=== PATIENT | female | born 1950 | race Caucasian/White ===

== ENCOUNTER 2024-04-03 12:43 | Outpatient (REF) | payer MEDICARE, MEDICAID, SELFPAY ==
--- NOTE | ~2024-04-03 | XR_ITS ---
CLINICAL HISTORY: M41.56 - Other secondary scoliosis, lumbar region 4 views lumbar spine Comparison: None Findings: Moderate leftward curvature of the lower lumbar spine and mild rightward curvature of the thoracolumbar junction loss of normal lumbar lordosis. Mild upper lumbar and lower thoracic kyphosis. Arterial vascular calcifications are present. No acute fractures or dislocation. Multilevel disc space narrowing and endplate osteophyte formation, as well as facet hypertrophy. IMPRESSION: No acute findings. This document has been electronically signed by: Javed Rios MD on 04/04/2024 14:55:56
--- OUTSIDE RECORDS SUMMARY | 2024-04-03 15:22 | XMS_ITS | Encounter Summary ---
Author Organization [facility] Address [address] [place] [address] Care Team Providers Care Protein Specialist Name Role Phone Anupama Dumont MD Primary Care Provider [phone] Reason for Visit * Reason Onset Date Comments Medical Records 03/20/2024 Encounter Details Date Type Department Care Team (Late st Contact Info) Description 03/20/[address] [place] [phone] Anupama Dumont MD [address] [facility] [address] [place] [address] Medical Records Social History Tobacco Use Types [...] to her that we have a third constitution party copying service [employer] that will process your complete records upon receiving a signed ANDREE form. Patient understood and I mailed a ANDREE form to her. documented in this encounter Plan of Treatment Upcoming Encounters Date Type Department Care Team (Late st Contact Info) Description 04/10/2024 1:40 PM EST Office Visit Gastroenterology - [address] [facility] [address] [place] [phone] Wolf Callaway PA [address] [place] [address] documented as of this encounter Visit Diagnoses Not on filedocumented in this encounter Care Teams Protein Specialist Relationship Specialty Start Date End Date Anupama Dumont MD [address] [facility] [address] [place] [address] PCP - General Internal Medicine 03/19/24 documented as of this encounter
--- OUTSIDE RECORDS SUMMARY | 2024-04-03 15:22 | XMS_ITS | Clinical Summary ---
Author Organization [facility] 299 [facility] Address [address] [place] [address] Phone Care Team Providers Care Holistic Nutritionist Name Role Phone Anupama Dumont MD Primary Care Provider [phone] Allergies Active Allergy Reactions Criticality Noted Date [...] with Eliquis 2.5 mg twice daily. Her [id number] score is 5 representing a 7.2% risk [...] Type Department Care Team Description 03/20/2024 Telephone [facility] Cardiology [facility] [address] [place] [address] Anupama Dumont MD Medical Records 03/08/2024 Telephone [facility] [address] [facility] [address] [place] [address] Aleida Palacios NP Scheduling Follow Up from [...] Migraines DX:Migraines Major depressive disorder, r ecurrent ([facility]) DX:Major depressive disorder , recurrent ([facility]) COPD (chronic obstructive pu lmonary disease) ([facility]) DX:COPD (chronic obstructive pulmonary disease) ([facility]) Alcohol dependence in sustai ninfa full remission ([facility]) DX:Alcohol dependence in raphael tained full remission ([facility]) Anxiety DX:Anxiety Back pain DX:Back pain Carpal tunnel syndrome, bilateral DX:Carpal tunnel syndrome, bilateral Depression DX:Depression Emphysema lung ([facility]) DX:Emph ysema lung ([facility]) IFG (impaired fasting glucose) D X:IFG (impaired fasting glucose) Tobacco abuse DX:Tobacco abuse Acute respiratory failure wi th hypoxia ([facility]) DX:Acute respiratory failure with hypoxia ([facility]) Pulmonary embolism ([facility]) DX: Pulmonary embolism ([facility]); COMMENT: Unprovoked submassive Dyspnea DX:Dyspnea RLS (restless [...] Office Visit Gastroenterology - [address] [facility] [address] [place] [phone] Wolf Callaway PA [address] [place], [place] [phone] Health Maintenance Due Date Last Done Comments [...] age to complete this topic Care Teams Holistic Nutritionist Relationship Specialty Start Date End Date Anupama Dumont MD [address] [place] [address] PCP - General Internal Medicine 03/19/24
--- OUTSIDE RECORDS SUMMARY | 2024-04-03 15:22 | XMS_ITS | Encounter Summary ---
Author Organization [facility] Address [address] [place] [phone] Care Team Providers Care Food Service Tray Attendant Name Role Phone Anupama Dumont MD Primary Care Provider [phone] Reason for Visit * Reason Onset Date Comments Scheduling Follow Up 03/08/2024 Encounter Details Date Type Department Care Team (Late st Contact Info) Description 03/08/2024 Telephone [facility] Cardiology [facility] [address] [place] [phone] Aleida Palacios NP [address] [place] [address] [address] [place] [address] Scheduling Follow Up Social History Tobacco Use [...] [address] [place] [address] Wolf Callaway PA [address] [place] [address] documented as of this encounter Visit Diagnoses Not on filedocumented in this encounter Care Teams Food Service Tray Attendant Relationship Specialty Start Date End Date Anupama Dumont MD [address] [place] [address] PCP - General Internal Medicine 03/19/24 documented as of this encounter
== END 2024-04-03 12:44 | disposition home or self-care (01) ==
LOC: HO.HOSX 12:43
PROVIDERS: PCP Internal Medicine; Visit Provider Neurological Surgery
DX: M48.062 Spinal stenosis, lumbar region with neurogenic claudication (principal); M54.16 Radiculopathy, lumbar region; M41.56 Other secondary scoliosis, lumbar region
CPT/HCPCS: 72110; 99202

== ENCOUNTER 2024-04-03 12:43 | Outpatient (AMB) | payer MEDICARE, MEDICAID, SELFPAY ==
--- NOTE | 2024-04-03 12:48 | A.SPINEOV_ITS ---
Vital Signs 04/03/24 12:56 Height 5 ft 5 in Weight 178 lb BMI 29.6 Intake Visit Reasons: Back pain Intake Note: Ms. Valdez is here today c/o back pain. Farrowing Manager Required: No Allergies erythromycin base Adverse Reaction (Mild, Verified 04/03/24 12:58) Itching Physical Exam Vital Signs: BMI result Body Mass Index 29.6 Assessment & Plan Assessment & Plan (1) Scoliosis of lumbar region due to degenerative disease of spine in adult: Code(s): M41.56 - Other secondary scoliosis, lumbar region Category: Medical Plan: Dear colleague On 04/03/2024, I saw your patient Kayla Valdez for 2nd opinion with a chief complaint of left-sided back and groin pain and axial low back pain. HPI: This 73-year-old female has a long history of low back pain that increases when she walks or stands. She saw Dr. Morataya in the past told her that there was nothing surgically that could be done. Therefore, she has been living with the symptoms. The back pain does go into her legs after walking or standing. It is not pain per se in her legs but more a stiffness. Leaning forward or sitting down alleviates his symptoms. A 2nd complaint, which is the main reason why she is in my office today is a left-sided back pain that radiates to the left hip into her groin. In 2020, she had similar symptoms that would further radiate into her leg. The symptoms were debilitating and she underwent a surgical decompression by Dr. Rodarte at [facility]. The symptoms improved but never disappeared. A year postoperatively, the symptoms increased. She can not lay flat and therefore she sleeps in a sitting position on the couch. The pain is always present with flare-ups. She as [facility] if anything could be done. She was told that the pain does not radiate into her leg and therefore no surgery is indicated. The following conservative treatment options were tried without success antiinflammatories, tylenol, physical therapy, cortisone shots PMH: Hypertension, lung emboli Medications: Gabapentin, metoprolol, Eliquis, bupropion, fenofibrate, atorvastatin, losartan Allergies: NKDA Social history: Nonsmoker Physical Exam: Pleasant female. Height 5'5 weight 178 lb. Straight leg raise is negative bilaterally. SI joint provocative tests are negative. Motor and sensory exam are intact. No pathological reflexes Radiological Studies: MRI done at [facility] shows a lumbar degenerative scoliosis and a grade 1 L4-5 spondylolisthesis causing [id number] central spinal stenosis at L2-3, L3-4 and L4-5 and monitored foraminal stenosis of the right L3 L4 and L5 foramina . A dynamic x-ray today shows lumbar degenerative scoliosis L3-L5 with most likely an auto fusion at L2- 3. There is an L4-5 lateral listhesis and a grade 1 L4-5 spondylolisthesis also seen on the MRI. Impression/Plan: This patient has 2 separate complaints. The 1st is neurogenic claudication due to multilevel spinal stenosis associated with the lumbar degenerative scoliosis. The 2nd complaint is more a lumbar radiculopathy on the left side that is associated with severe lumbar degenerative disc disease L4-5, spinal stenosis and spondylolisthesis. I would like to obtain a CT of the lumbar spine to confirm that the L2-3 level is auto fused. I do think that I can help this patient's surgically, but it involves a correction of the lumbar degenerative scoliosis and spondylolisthesis through an oblique lumbar interbody fusion L3-4, L4-5 assuming that the L2-3 is auto fused. I discussed to the patient how this would help her neurogenic claudication symptoms and radicular symptoms on the hand of a model and review of her imaging. This minimally invasive approach can be done with an overnight stay. I will most likely at a left L2-3 laminotomy, which will be done during the insertion of L3-L5 pedicle screws. The patient will revisit me after the CT is done to finalize the plan and to decide if she wants to pursue this. Thank you for allowing me to participate in your patients care. total time spent was 50 minutes in counseling ,coordination of plan, personal r eview of imaging, surgical decision making and subsequent plan Dion Raymond MD, PhD Spine Fellowship Trained Neurosurgeon Director, [facility] (2) Lumbar stenosis with neurogenic claudication: Code(s): M48.062 - Spinal stenosis, lumbar region with neurogenic claudication Category: Medical (3) Lumbar radiculopathy, chronic: Code(s): M54.16 - Radiculopathy, lumbar region Category: Medical Plan: d Plan sd Orders: Orders XR lumbar spine 4V min Today M41.56 - Other secondary scoliosis, lumbar region CT lumbar spine wo IV con Today M41.56 - Other secondary scoliosis, lumbar region, M48.062 - Spinal stenosis, lumbar region with neurogenic claudication Coding Level of Care Code New Pt Level 4 (53129) Diagnoses Scoliosis of lumbar region due to degenerative disease of spine in adult M41.56 Lumbar stenosis with neurogenic claudication M48.062 Lumbar radiculopathy, chronic M54.16
[2024-04-03 12:56] VITALS: BMI 29.6
--- OUTSIDE RECORDS SUMMARY | 2024-04-03 14:49 | XMS_ITS | Encounter Summary ---
Author Organization [facility] Address [address] [place] [address] Care Team Providers Care Senior Quality Assurance Specialist Name Role Phone Anupama Dumont MD Primary Care Provider [phone] Reason for Visit * Reason Onset Date Comments Medical Records 03/20/2024 Encounter Details Date Type Department Care Team (Late st Contact Info) Description 03/20/[address] [place] [phone] Anupama Dumont MD [address] [facility] [address] [place] [address] Medical Records Social History Tobacco Use Types Packs/Day Years Used Date Smoking Tobacco: Every Day Cigarettes Smokeless Tobacco: Never Alcohol Use Standard Drinks/Week Comments Not Currently 0 (1 standard drink = 0.6 oz pur e alcohol) Sex and Gender Information Value Date Recorded Sex Assigned at Not on file Gender Identity Not on file Sexual Orientation Not on file Job Start Date Occupation Industry Not on file Not on file Not on file documented as of this encounter Progress Notes * Gena Richard - 03/20/2024 11:28 AM EST Patient called to inform us that she is leaving the practice and would like her complete records. Iexplained to her that we have a third green party copying service [employer] that will process your complete records upon receiving a signed ANDREE form. Patient understood and I mailed a ANDREE form to her. documented in this encounter Plan of Treatment Upcoming Encounters Date Type Department Care Team (Late st Contact Info) Description 04/10/2024 1:40 PM EST Office Visit Gastroenterology - [address] [facility] [address] [place] [phone] Wolf Callaway PA [address] [place] [address] documented as of this encounter Visit Diagnoses Not on filedocumented in this encounter Care Teams Senior Quality Assurance Specialist Relationship Specialty Start Date End Date Anupama Dumont MD [address] [facility] [address] [place] [address] PCP - General Internal Medicine 03/19/24 documented as of this encounter
--- OUTSIDE RECORDS SUMMARY | 2024-04-03 14:49 | XMS_ITS | Clinical Summary ---
Author Organization [facility] 299 [facility] Address [address] [place] [address] Phone Care Team Providers Care Aeronautical Design Engineer Name Role Phone Anupama Dumont MD Primary Care Provider [phone] Allergies Active Allergy Reactions Criticality Noted Date Comments Erythromycin 06/23/2020 Medications Medication Sig Dispensed Refills Start Date End Date Status Eliquis 2.5 mg tablet Take 2 tablets (5 mg total) by mouth 2 (two) times a day. 180 tablet 2 01/14/2024 Active ALPRAZolam (XANAX) 0.5 mg tablet Take 0.5 mg by mouth at bedtime. Active aspirin 81 mg chewable tablet Take 1 Tablet by mouth daily. 04/17/2023 Active atorvastatin (LIPITOR) 40 mg tablet TAKE 1 TABLET BY MOUTH DAILY 08/01/2023 Active carisoprodoL (SOMA) 250 mg tablet Take 1 Tablet by mouth 3 times daily as needed. Active gabapentin (NEURONTIN) 600 mg tablet Take 1 tablet by mouth 2 Times Daily. 10/01/2012 Active losartan (COZAAR) 50 mg tablet Take 1 Tablet by mouth daily. Active metoprolol tartrate (LOPRESSOR) 50 mg tablet Take 50 mg by mouth 2 times daily. Active omega-3 acid ethyl esters (LOVAZA) 1 gram capsule daily. 10/01/2012 Active sertraline (ZOLOFT) 100 mg tablet Take 1 tablet by mouth daily. 10/01/2012 Active BUPROPION HCL ORAL Take 300 mg by mouth daily. 10/01/2012 Active multivitamin (MULTIPLE VITAMINS ORAL) Take?by mouth daily. Active fenofibrate (TRICOR) 48 mg tablet TAKE 1 TABLET BY MOUTH EVERY DAY 10/19/2023 Active Active Problems Problem Noted Date Diagnosed Date Bruit 10/10/2022 Overview (03/20/2024): Last Assessment & Plan: Patient has history of carotid bruit. We discussed the importance of managing her risk factors and continuing on atorvastatin and aspirin. She has not been taking aspirin but is agreeable to restarting this today. We also discussed that goal LDL cholesterol should be less than 70. Her last LDL cholesterol was 83. At that time her atorvastatin dose was increased. We will update lipid panel to see where she is at at this point. Chest pain 10/10/2022 Overview (03/20/2024): Last Assessment & Plan: We did discuss her chest discomfort. She has been having this off and on with exertion for some time now. We did discuss potential causes. We did a stress test on her in the past. She was unable to complete this due to leg pain and discomfort. This is a submaximal test. We had requested to reorder this as a nuclear stress test with regadenoson. She was worried about getting the regular and a son and having a reaction. She states that she had spoken with friends who had had this and felt poorly. Because of this she did not follow through with her test. We did discuss this again. We did discuss the reactions that she could have from the regadenoson and that this is reversible. She is willing to participate although she does not seem very convinced. We will try to get her approved for a cardiac PET stress test as this will be a better test for her. Her BMI is 31. She does have risks for soft tissue attenuation based on her body habitus. PAF (paroxysmal atrial fibrillation) 10/28/2021 Overview (03/20/2024): Last Assessment & Plan: Patient has history of paroxysmal atrial fibrillation. She also has history of pulmonary embolism in the past. She has been on anticoagulation with Eliquis 2.5 mg twice daily. Her [id number] score is 5 representing a 7.2% risk for thromboembolism. Given her age, weight and renal function her Eliquis dose is not adequate. I will increase her Eliquis to 5 mg twice daily. I explained the importance of appropriate dosing with the patient and she is agreeable to make this change. We will update an echocardiogram. Pulmonary embolism 10/28/2021 Overview (03/20/2024): Last Assessment & Plan: We did discuss her pulmonary embolism. She did have some RV strain and pulmonary hypertension secondary to this. Of asked her to repeat an echocardiogram so we can make sure that her RV size and function have gone back to normal. We did discuss that she could have continued pulmonary hypertension from her smoking as well as her pulmonary embolism. Dyspnea 08/25/2020 Overview (03/20/2024): Last Assessment & Plan: This is likely multifactorial with her history of smoking, pulmonary embolism and potential coronary disease. Again we will be updating her cardiac stress test. She had an echo done recently which showed normal left ventricular function with a reduction in her gradient. Pulmonary pressures have been stable Hyperlipidemia 08/20/2020 Overview (03/20/2024): Last Assessment & Plan: Goal LDL cholesterol is less than 70. She has been on atorvastatin 40 mg since January at which time her LDL cholesterol was above goal at 83. We will update a lipid panel to reassess. She will also continue on fenofibrate as prescribed. Hypertension 08/20/2020 Overview (03/20/2024): Last Assessment & Plan: Blood pressure is well-controlled with a reading today of 120/64. She continues on losartan and metoprolol with good effect. No changes to her medications today. PSVT (paroxysmal supraventricular tachycardia) 0 08/20/2020 Overview (03/20/2024): Last Assessment & Plan: Patient has history of paroxysmal supraventricular tachycardia. She remains on metoprolol for rate control and denies any palpitations. Encounters Date Type Department Care Team Description 03/20/2024 Telephone [facility] Cardiology [facility] [address] [place] [address] Anupama Dumont MD Medical Records 03/08/2024 [address] [facility] [address] [facility] [address] [place] [address] Aleida Palacios NP Scheduling Follow Up from Last 3 Months Surgical History Surgery Date Site/Laterality Comments OTHER SURGICAL HISTORY 12/06/2005 PROCEDURE: HISTORICAL PANNICULECTOMY OTHER SURGICAL HISTORY 09/2014 PROCEDURE: HISTORY OTHER; COMMENT: Blepharoplasty - ptosis repair [facility] OTHER SURGICAL HISTORY 05/2020 PROCEDURE: HISTORY OTHER; COMMENT: Microdiscectomy of lumbar spine at L3-L4 level - Dr. Rodarte OTHER SURGICAL HISTORY 06/2018 PROCEDURE: DIAGNOSTIC MAMMOGRAM BACK SURGERY PROCEDURE: HISTORICAL BACK SURGERY Medical History Medical History Date Comments Lumbar pain DX:Lumbar pain Lumbar stenosis with neuroge julien claudication DX:Lumbar stenosis with neur ogenic claudication Family history of early CAD DX:F amily history of early CAD Panic disorder with agoraphobia DX:Panic disorder with agoraphobia Migraines DX:Migraines Major depressive disorder, r ecurrent ([facility]) DX:Major depressive disorder , recurrent ([facility]) COPD (chronic obstructive pu lmonary disease) ([facility]) DX:COPD (chronic obstructive pulmonary disease) ([facility]) Alcohol dependence in sustai nifna full remission ([facility]) DX:Alcohol dependence in raphael tained full remission ([facility]) Anxiety DX:Anxiety Back pain DX:Back pain Carpal tunnel syndrome, bilateral DX:Carpal tunnel syndrome, bilateral Depression DX:Depression Emphysema lung ([facility]) DX:Emph ysema lung ([facility]) IFG (impaired fasting glucose) D X:IFG (impaired fasting glucose) Tobacco abuse DX:Tobacco abuse Acute respiratory failure wi th hypoxia ([facility]) DX:Acute respiratory failure with hypoxia ([facility]) Pulmonary embolism ([facility]) DX: Pulmonary embolism ([facility]); COMMENT: Unprovoked submassive Dyspnea DX:Dyspnea RLS (restless legs syndrome) DX: RLS (restless legs syndrome) Family History Medical History Relation Name Comments Alcohol abuse Brother Heart attack Father COPD Other Coronary artery disease Other Alcohol abuse Sister Depression Sister Other: Anxiety disorder Sister Relation Name Status Comments Brother Father Other Sister Social History Tobacco Use Types Packs/Day Years [...] file Not on file Not on file Obstetrics History Last Filed Vital Signs Vital Sign Reading Time Taken Comments Blood Pressure 130/60 10/11/2023 2:19 PM EDT Sit ting L Arm Pulse 64 04/17/2023 1:21 PM EST Temperature - - Respiratory Rate - - Oxygen Saturation - - Inhaled Oxygen Concentration - - Weight 77.6 kg (171 lb) 10/11/2023 2:19 PM EDT Height 165.1 cm (5' 5 ) 10/11/2023 2:19 PM EDT Body Mass Index 28.46 10/11/2023 2:19 PM EDT Plan of Treatment Upcoming Encounters Date Type Department Care Team (Late st Contact Info) Description 04/10/2024 1:40 PM EST Office Visit Gastroenterology - [address] [facility] [address] [place] [phone] Wolf Callaway PA [address] [place], [place] [phone] Health Maintenance Due Date Last Done Comments Breast Cancer Screening 1950 Pneumococcal Vaccine: 65+ Ye ars (1 of 2 - PCV) 1958 DTaP,Tdap,and Td Vaccines (1 - Tdap) 11/25/1971 Zoster Vaccines (1 of 2) 2002 RSV Immunization Patients 60 + Years Old (1 - Risk 60-74 years 1-dose series) 2012 Cholesterol Screening (Lipid Panel) 02/12/2022 Colorectal Cancer Screening: Colonoscopy 02/12/2022 Depression Screening 02/12/2022 Falls Risk Assessment 02/12/2022 Hepatitis C Screening 02/12/2022 Hypertension/CHF/CAD Annual BMP Blood Test 02/12/2022 Medicare Annual Wellness Visit 02/12/2022 Osteoporosis Screening (Bone Density Screening) 02/12/2022 Social Influencers of Health Screening 02/12/2022 COVID-19 Vaccine (1 - 2023-2 5 season) 2023 Influenza Vaccine (#1) 2023 HIB Vaccines Aged Out No longer eligi ble based on patient's age to complete this topic HPV Vaccines Aged Out No longer eligi ble based on patient's age to complete this topic Hepatitis A Vaccines Aged Out No long er eligible based on patient's age to complete this topic Hepatitis B Vaccines Aged Out No long er eligible based on patient's age to complete this topic IPV Vaccines Aged Out No longer eligi ble based on patient's age to complete this topic MMR Vaccines Aged Out No longer eligi ble based on patient's age to complete this topic Meningococcal ACWY Vaccine Aged Out N o longer eligible based on patient's age to complete this topic RSV Immunization Patients Un ambar 20 months Aged Out No longer eligible b ased on patient's age to complete this topic Varicella Vaccines Aged Out No longer eligible based on patient's age to complete this topic Care Teams Aeronautical Design Engineer Relationship Specialty Start Date End Date Anupama Dumont MD [address] [place] [address] PCP - General Internal Medicine 03/19/24
--- OUTSIDE RECORDS SUMMARY | 2024-04-03 14:49 | XMS_ITS | Encounter Summary ---
Author Organization [facility] Address [address] [place] [phone] Care Team Providers Care Bobbin Loose End Finder Name Role Phone Anupama Dumont MD Primary Care Provider [phone] Reason for Visit * Reason Onset Date Comments Scheduling Follow Up 03/08/2024 Encounter Details Date Type Department Care Team (Late st Contact Info) Description 03/08/2024 Telephone [facility] Cardiology [facility] [address] [place] [phone] Aleida Palacios NP [address] [place] [address] [address] [place] [address] Scheduling Follow Up Social History Tobacco Use Types Packs/Day Years [...] as of this encounter Progress Notes * Barbi Rice - 03/08/2024 10:13 AM EST I called the patient to schedule a follow up appointment with Aleida. The patient did not wish to schedule a follow up. States she called back in October and was not able to get through to anyone so she is all set. documented in this encounter Plan of Treatment Upcoming Encounters Date Type Department Care Team (Late st Contact Info) Description 04/10/2024 1:40 PM EST Office Visit Gastroenterology - [address] [place] [address] Wolf aCllaway PA [address] [place] [address] documented as of this encounter Visit Diagnoses Not on filedocumented in this encounter Care Teams Bobbin Loose End Finder Relationship Specialty Start Date End Date Anupama Dumont MD [address] [place] [address] PCP - General Internal Medicine 03/19/24 documented as of this encounter
== END 2024-04-03 13:50 | disposition home or self-care (01) ==
PROVIDERS: PCP Internal Medicine; Visit Provider Neurological Surgery
DX: M41.56 Other secondary scoliosis, lumbar region (principal); M48.062 Spinal stenosis, lumbar region with neurogenic claudication; M54.16 Radiculopathy, lumbar region
CPT/HCPCS: 99204

== ENCOUNTER → 2024-04-03 13:18 | Outpatient (BNV) | payer MEDICARE, MEDICAID, SELFPAY | PROVIDERS: PCP Internal Medicine; Visit Provider Radiology Diagnostic Radiology | DX: M41.9 Scoliosis, unspecified (principal) | CPT/HCPCS: 72110 ==

== ENCOUNTER 2024-05-15 12:42 | Outpatient (REF) | payer MEDICARE, MEDICAID, SELFPAY ==
--- NOTE | ~2024-05-15 | CT_ITS ---
CLINICAL HISTORY: M48.062 - Spinal stenosis, lumbar region with neurogenic claudication CT lumbar spine without contrast Comparison: DX - XR LUMBAR SPINE 4V MIN - 04/03/24 13:18 EST Findings: No acute fracture. Scoliosis and multilevel degenerative changes of the lumbar spine with osteophyte formation and narrowing of the intervertebral disc space including L1-L2, L2-L3, L3-L4 and L4-L5. Degenerative facet arthropathy of the lower lumbar spine. There is a left kidney stone. T12-L1: Unremarkable. L1-L2: Disc bulging with mild spinal stenosis. Mild right neural foramina stenosis and moderate left neural foramina stenosis. L2-L3: Disc bulging with mild spinal stenosis. Moderate bilateral neural foramina stenosis. L3-L4: Disc bulging with moderate spinal stenosis. Moderate left neural foramina stenosis and [id number] right neural foramina stenosis. L4-L5: Disc bulging with moderate spinal stenosis. Mild bilateral neural foramina stenosis. L5-S1: No spinal stenosis. Mild bilateral neural foramina stenosis. IMPRESSION: 1. No acute findings. Multilevel degenerative changes of the lumbar spine as above. This document has been electronically signed by: Gretchen Paige MD on 05/16/2024 15:34:32
--- OUTSIDE RECORDS SUMMARY | 2024-05-15 14:45 | XMS_ITS | Encounter Summary ---
Author Organization [facility] Address [address] [place] [address] Care Team Providers Care Microbiology Professor Name Role Phone Anupama Dumont MD Primary Care Provider Reason for Visit * Reason Onset Date Comments Medical Records 04/17/2024 Encounter Details Date Type Department Care Team (Late st Contact Info) Description 04/17/2024 Telephone [facility] Cardiology [facility] [address] [place] [phone] Anupama Dumont MD [address] [facility] [address] [place] [address] Medical Records Social History Tobacco Use Types Packs/Day Years Used Date Smoking Tobacco: Every Day Cigarettes Smokeless Tobacco: Never Alcohol Use Standard Drinks/Week Comments Not Currently 0 (1 standard drink = 0.6 oz pur e alcohol) Comments Unknown Sex and Gender Information Value Date Recorded Sex Assigned at Female 04/15/2024 11:41 AM EST Legal Sex Female 7:31 AM EST Gender Identity Female 04/15/2024 11:41 AM EST Sexual Orientation Straight 04/15/2024 11 :41 AM EST documented as of this encounter Progress Notes * Gena Richard - 05/06/2024 4:46 PM EST Faxed 04/17/2023 Office Note and 10/11/2023 Echo report to [facility] at [phone] on 04/17/2024 documented in this encounter Plan of Treatment Upcoming Encounters Date Type Department Care Team (Late st Contact Info) Description 06/20/2024 9:00 AM EDT Appointment [facility] Xray [address] [place] [phone] 07/10/2024 1:20 PM EDT Office Visit Gastroenterology - [address] [facility] [address] [place] [address] Wolf Callaway PA [address] [facility] [address] [place] [address] 07/15/2024 1:30 PM EDT Office Visit [facility] - [address] 300 [facility] [address] [place] [address] Janes Pinzon MD 300 [facility] [address] [place] [address] documented as of this encounter Visit Diagnoses Not on filedocumented in this encounter Care Teams Microbiology Professor Relationship Specialty Start Date End Date Anupama Dumont MD [address] [facility] [address] [place] [address] PCP - General Internal Medicine 03/19/24 documented as of this encounter
--- OUTSIDE RECORDS SUMMARY | 2024-05-15 14:45 | XMS_ITS | Clinical Summary ---
Author Organization [facility] 299 [facility] Address [address] [place] [address] Phone Care Team Providers Care Boxing And Pressing Supervisor Name Role Phone Anupama Dumont MD Primary Care Provider [phone] Allergies Active Allergy Reactions Criticality Noted Date Comments Erythromycin 06/23/2020 Medications Eliquis 2.5 mg tablet Take 2 tablets (5 mg total) by mouth 2 (two) times a day. 180 tablet 2 4 Active ALPRAZolam (XANAX) 0.5 mg tablet Take 0.5 mg by mouth at bedtime. Active aspirin 81 mg chewable tablet Take 1 Tablet by mouth daily. 4 Active carisoprodoL (SOMA) 250 mg tablet Take 1 Tablet by mouth 3 times daily as needed. Active gabapentin (NEURONTIN) 600 mg tablet Take 1 tablet by mouth 2 Times Daily. 3 Active losartan (COZAAR) 50 mg tablet Take 1 Tablet by mouth daily. Active metoprolol tartrate (LOPRESSOR) 50 mg tablet Take 50 mg by mouth 2 times daily. Active omega-3 acid ethyl esters (LOVAZA) 1 gram capsule daily. 3 Active sertraline (ZOLOFT) 100 mg tablet Take 1 tablet by mouth daily. 3 Active BUPROPION HCL ORAL Take 300 mg by mouth daily. 3 Active multivitamin (MULTIPLE VITAMINS ORAL) Take?by mouth daily. Active fenofibrate (TRICOR) 48 mg tablet TAKE 1 TABLET BY MOUTH EVERY DAY 4 Active omeprazole OTC (PriLOSEC OTC) 20 mg EC tabletIndicati ons:Early satiety,Pharyn goesophageal dysphagia,Regu rgitation of food Take 1 tablet (20 mg total) by mouth 1 (one) time each day. Do not crush, chew, or split. 90 tablet 3 5 04/10/19 26 Active atorvastatin (LIPITOR) 40 mg tablet TAKE 1 TABLET BY MOUTH DAILY 90 tablet 5 Active atorvastatin (LIPITOR) 40 mg tablet TAKE 1 TABLET BY MOUTH DAILY 4 04/19/19 25 Discontinued Active Problems Problem Noted Date Diagnosed Date [...] with Eliquis 2.5 mg twice daily. Her [id number] score is 5 representing a 7.2% risk [...] Encounters Date Type Department Care Team Description 04/17/2024 Telephone [facility] [address] [place] [address] Anupama Dumont MD Medical Records 04/10/2024 2:17 PM EST - 04/10/2024 11:59 PM EST Hospital Encounter [facility] Xray [address] [place] [phone] Early satiety Discharge Disposition: Home or Self Care 04/10/2024 1:40 PM EST Office Visit Gastroenterology - [address] [facility] [address] [facility] [address] [place] [phone] Wolf Callaway PA Early satiety (Primary Dx); Pharyngoesophageal dysphagia; Regurgitation of food; Chronic diarrhea 03/20/2024 Telephone [facility] [address] [place] [address] Anupama Dumont MD Medical Records 03/08/2024 Telephone [facility] [address] [place] [phone] Aleida Palacios NP Scheduling Follow Up from [...] Migraines DX:Migraines Major depressive disorder, r ecurrent (CMS/HCC) DX:Major depressive disorder , recurrent (HCC) COPD (chronic obstructive pu lmonary disease) (CMS/HCC) DX:COPD (chronic obstructive pulmonary disease) (HCC) Alcohol dependence in sustai ninfa full remission (CMS/HCC) DX:Alcohol dependence in raphael tained full remission (HCC) Anxiety DX:Anxiety Back pain DX:Back pain Carpal tunnel syndrome, bilateral DX:Carpal tunnel syndrome, bilateral Depression DX:Depression Emphysema lung (CMS/HCC) DX:Emph ysema lung (HCC) IFG (impaired fasting glucose) D X:IFG (impaired fasting glucose) Tobacco abuse DX:Tobacco abuse Acute respiratory failure wi th hypoxia (CMS/HCC) DX:Acute respiratory failure with hypoxia (HCC) Pulmonary embolism (CMS/[facility]) DX: Pulmonary embolism (HCC); COMMENT: Unprovoked submassive Dyspnea DX:Dyspnea RLS (restless [...] Orientation Straight 04/15/2024 11 :41 AM EST Obstetrics History Last Filed Vital Signs Vital Sign Reading Time Taken Comments Blood Pressure 130/60 10/11/2023 2:19 PM EDT Sit ting L Arm Pulse 64 04/17/2023 1:21 PM EST Temperature - - Respiratory Rate - - Oxygen Saturation - - Inhaled Oxygen Concentration - - Weight 83 kg (183 lb) 04/10/2024 1:28 PM EST Height 160 cm (5' 3 ) 04/10/2024 1:28 PM EST Body Mass Index 32.42 04/10/2024 1:28 PM EST Plan of Treatment Upcoming Encounters Date Type Department Care Team (Late st Contact Info) Description 06/20/2024 9:00 AM EDT Appointment [facility] Xray [address] [place] [phone] 07/10/2024 1:20 PM EDT Office Visit Gastroenterology - [address] [facility] [address] [place] [address] Wolf Callaway PA 299 [facility] [address] [place] [address] 07/15/2024 1:30 PM EDT Office Visit [facility] [address] [facility] [address] [place] [phone] Janes Pinzon MD 300 [facility] [address] [place] [address] Health Maintenance Due Date Last Done Comments Breast Cancer Screening 1950 DTaP,Tdap,and Td Vaccines (1 - Tdap) 11/25/1971 Colorectal Cancer Screening: Colonoscopy 02/12/2022 Depression Screening 02/12/2022 Falls Risk Assessment 02/12/2022 Hepatitis C Screening 02/12/2022 Medicare Annual Wellness Visit 02/12/2022 Osteoporosis Screening (Bone Density Screening) 02/12/2022 Social Influencers of Health Screening 02/12/2022 Influenza Vaccine (#1) 2023 , 12/22/2021, 12/06/2020, Additional history exists Hypertension/CHF/CAD Annual BMP Blood Test 04/10/2025 04/10/2024 Cholesterol Screening (Lipid Panel) 04/26/2029 04/26/2024 RSV Immunization Patients 60+ Years Old Completed 12/07/2022 Pneumococcal Vaccine: 50+ Years Completed 11/10/2023, 12/05/2017, 08/18/2010 Zoster Vaccines Completed 11/10/2023, 06/01/2023 COVID-19 Vaccine Completed 12/20/2023, 06/2022, 11/22/2021, Additional history exists HIB Vaccines Aged Out No longer eligi [...] patient's age to complete this topic Meningococcal B Vacine Aged Out No lo nger eligible based on patient's age to complete this topic RSV Immunization Patients Under 20 months Aged Out No longer eligible based on patient's age to complete this topic Varicella Vaccines Aged Out No longer eligible based on patient's age to complete this topic Procedures Procedure Name Priority Date/Time Associated Diagnosis Comments LIPID PANEL Routine 04/26/2024 9:50 AM EST Hyperlipidemia, unspecified hyperlipidemia type XR ABDOMEN 1 VIEW Routine 04/10/2024 2:4 6 PM EST Early satiety CBC WITH AUTO DIFFERENTIAL Routine 04/10/2024 2:30 PM EST Early satiety Pharyngoesophageal dysphagia Regurgitation of food Chronic diarrhea IMMUNOGLOBULIN IGA Routine 04/10/2024 2: 30 PM EST Chronic diarrhea ENDOMYSIAL ANTIBODY, IGA Routine 04/10/2024 2:30 PM EST Early satiety Pharyngoesophageal dysphagia Regurgitation of food Chronic diarrhea TISSUE TRANSGLUTAMINASE, IGA Routine 04/10/2024 2:30 PM EST Early satiety Pharyngoesophageal dysphagia Regurgitation of food Chronic diarrhea VITAMIN B12 AND FOLATE Routine 2:30 PM EST Early satiety Pharyngoesophageal dysphagia Regurgitation of food Chronic diarrhea CBC AND DIFFERENTIAL Routine 04/10/2024 2:30 PM EST Early satiety Pharyngoesophageal dysphagia Regurgitation of food Chronic diarrhea COMPREHENSIVE METABOLIC PANEL Routine 04/10/2024 2:30 PM EST Early satiety Pharyngoesophageal dysphagia Regurgitation of food Chronic diarrhea from Last 3 Months Results * Lipid panel (04/26/2024 9:50 AM EST) Cholesterol Total 122 100 - 199 mg/dL [facility] Triglycerides 109 0 - 149 mg/dL [facility] HDL Cholesterol 44 >39 mg/dL [facility] VLDL Cholesterol Calculated 20 5 - 40 mg/dL [facility] LDL Chol Calc ([facility]) 58 0 - 99 mg/dL [facility] Blood Venous blood specimen / Unknown 04/26/2024 9:50 AM EST 04/26/2024 Narrative [facility] - 04/27/2024 3:06 AM EST Performed at: ??01 - [facility] [address] ??[id number] Customs Agent: Maureen Saleh MD, Phone: ??[phone] us Aleida Palacios MULTIPLE NEEDLE STITCHER LAB BLOOD ORDERABLES Final R esult [facility] * XR Abdomen 1 View (04/10/2024 2:46 PM EST) Anatomical Region Laterality Modality Body Radiographic Elizabeth ging 04/11/2024 7:55 AM EST Impressions 04/11/2024 7:57 AM EST Nonobstructive bowel gas pattern. ??There is no radiographic evidence of constipation. Code 23243 CT Teleradiology -------- FINAL REPORT -------- Dictated By: Cuco Jo Dictated Date: 04/11/2024 07:55 ET Assigned Physician: Cuco Jo Reviewed and Electronically Signed By: Cuco Jo Signed Date: 04/11/2024 07:57 ET Workstation ID: [id number] Transcribed By: Self Edit Transcribed Date: 04/11/2024 07:55 ET Narrative 04/11/2024 7:57 AM EST HISTORY: The patient is a 73-year-old female with abdominal distention and early satiety. FINDINGS: Supine radiographs of the abdomen, without previous for comparison, demonstrate degenerative changes of the lumbar spine and included portion of the thoracic spine. ??There is dextroscoliosis of the thoracolumbar spine and levoscoliosis of the lower lumbar spine. ??Mild osteoarthritis of both hips is noted. ??The bowel gas pattern is nonobstructive. ??The volume of fecal material is not unusually increased. ??No mass or radiopaque calculus is seen. Procedure Note Cuco Jo MD - 04/11/2024 HISTORY: The patient is a 73-year-old female with abdominal distention andearly satiety. FINDINGS: Supine radiographs of the abdomen, without previous forcomparison, demonstrate degenerative changes of the lumbar spine andincluded portion of the thoracic spine. There is dextroscoliosis of thethoracolumbar spine and levoscoliosis of the lower lumbar spine. Mildosteoarthritis of both hips is noted. The bowel gas pattern isnonobstructive. The volume of fecal material is not unusually increased.No mass or radiopaque calculus is seen. IMPRESSION: Nonobstructive bowel gas pattern. There is no radiographic evidence ofconstipation. Code 56197 CT Teleradiology -------- FINAL REPORT -------- Dictated By: Cuco Jo Dictated Date: 04/11/2024 07:55 ET Assigned Physician: Cuco Jo Reviewed and Electronically Signed By: Cuco Jo Signed Date: 04/11/2024 07:57 ET Workstation ID: [id number] Transcribed By: Self Edit Transcribed Date: 04/11/2024 07:55 ET Wolf MOLINA IMG XR PROCEDURES Final Resu lt * (ABNORMAL) Vitamin B12 and folate (04/10/2024 2:30 PM EST) [facility] Signature Vitamin B-12 550 250 - 900 pcg/mL LAB CHEMISTRY METHOD 04/10/2024 4:21 PM EST [facility] Folate >20.0(H) 2.8 - 17.0 ng/ml LAB CHEMISTRY METHOD 04/10/2024 4:21 PM EST [facility] Blood Venous blood specimen / Unknown Venipuncture / Unknown 04/10/2024 2:30 PM EST 04/10/2024 3:[address] [facility] BLOOD ORDERABLES Final R esult [facility] [address] [place] [address], [place] [phone] * Endomysial antibody, IgA (04/10/2024 2:30 PM EST) Endomysial IgA Negative Negative 04/16/2024 11:54 AM [facility] Blood Venous blood specimen / Unknown Venipuncture / Unknown 04/10/2024 2:30 PM EST 04/10/2024 3:17 PM EST Wolf MOLINA LAB BLOOD ORDERABLES Final R esult [facility] [address] [place] [address], [place] [phone] * (ABNORMAL) CBC auto differential (04/10/2024 2:30 PM EST) WBC 6.9 4.8 - 10.8 K/mcL LAB HEMETOLOGY METHOD 04/10/2024 3:22 PM [facility] RBC 4.30 3.80 - 4.80 M/mcL LAB HEMETOLOGY METHOD 04/10/2024 3:22 PM [facility] Hemoglobin 12.7 11.5 - 16.0 g/dL LAB HEMETOLOGY METHOD 04/10/2024 3:22 PM [facility] Hematocrit 39.0 35.0 - 47.0 % LAB HEMETOLOGY METHOD 04/10/2024 3:22 PM [facility] MCV 90.5 79.0 - 98.0 FL LAB HEMETOLOGY METHOD 04/10/2024 3:22 PM [facility] MCH 29.5 27.0 - 32.0 pcg LAB HEMETOLOGY METHOD 04/10/2024 3:22 PM [facility] MCHC 32.6 32.0 - 37.0 g/dL LAB HEMETOLOGY METHOD 04/10/2024 3:22 PM [facility] RDW 14.3 11.0 - 15.0 % LAB HEMETOLOGY METHOD 04/10/2024 3:22 PM [facility] Platelets 254 130 - 400 K/mcL LAB HEMETOLOGY METHOD 04/10/2024 3:22 PM [facility] MPV 9.1 7.0 - 11.0 FL LAB HEMETOLOGY METHOD 04/10/2024 3:22 PM [facility] NRBC 0.0 <1.0 % LAB HEMETOLOGY METHOD 04/10/2024 3:22 PM [facility] NRBC Absolute 0.00 <0.10 K/mcL LAB HEMETOLOGY METHOD 04/10/2024 3:22 PM [facility] Neutrophils Relative 63.0 % LAB HEMETOLOGY METHOD 04/10/2024 3:22 PM [facility] Lymphocytes Relative 24.3 % LAB HEMETOLOGY METHOD 04/10/2024 3:22 PM [facility] Monocytes Relative 7.9 % LAB HEMETOLOGY METHOD 04/10/2024 3:22 PM [facility] Eosinophils Relative 3.6 % LAB HEMETOLOGY METHOD 04/10/2024 3:22 PM [facility] Basophils Relative 0.6 % LAB HEMETOLOGY METHOD 04/10/2024 3:22 PM [facility] Immature Granulocytes Relative 0.6 % LAB HEMETOLOGY METHOD 04/10/2024 3:22 PM EST [facility] Neutrophils Absolute 4.33 1.50 - 7.00 K/mcL LAB HEMETOLOGY METHOD 04/10/2024 3:22 PM EST [facility] Lymphocytes Absolute 1.67 1.00 - 5.00 K/mcL LAB HEMETOLOGY METHOD 04/10/2024 3:22 PM EST [facility] Monocytes Absolute 0.54 0.20 - 1.00 K/mcL LAB HEMETOLOGY METHOD 04/10/2024 3:22 PM EST [facility] Eosinophils Absolute 0.25 0.00 - 0.50 K/mcL LAB HEMETOLOGY METHOD 04/10/2024 3:22 PM [facility] Basophils Absolute 0.04 0.00 - 0.20 K/mcL LAB HEMETOLOGY METHOD 04/10/2024 3:22 PM EST [facility] Immature Granulocytes Absolute 0.04(H) 0.00 - 0.03 K/mcL LAB HEMETOLOGY METHOD 04/10/2024 3:22 PM [facility] Blood Venous blood specimen / Unknown Venipuncture / Unknown 04/10/2024 2:30 PM EST 04/10/2024 3:17 PM EST Wolf MOLINA LAB BLOOD ORDERABLES Final R esult [facility] [address] [place] [address], * Tissue transglutaminase, IgA (04/10/2024 2:30 PM EST) Tissue Transglutaminase Ab, IgA Quant 1 <4 unit/mL LAB CHEMISTRY METHOD 04/11/2024 2:45 PM EST [facility] Tissue Transglutaminase Ab, IgA Negative Negative LAB CHEMISTRY METHOD 04/11/2024 2:45 PM EST [facility] Blood Venous blood specimen / Unknown Venipuncture / Unknown 04/10/2024 2:30 PM EST 04/10/2024 3:[address] [facility] BLOOD ORDERABLES Final R esult Performing Organization Address City/[facility]/ZIP Co de Phone Number [facility] [address] [place] [address], [place] [phone] * Immunoglobulin IgA (04/10/2024 2:30 PM EST) Pathologist [facility] IgA 113 61 - 348 mg/dL LAB CHEMISTRY METHOD 04/10/2024 4:21 PM [facility] Blood Venous blood specimen / Unknown Venipuncture / Unknown 04/10/2024 2:30 PM EST 04/10/2024 3:17 PM EST Wolf MOLINA LAB BLOOD ORDERABLES Final R esult Performing Organization Address City/[facility]/ZIP Co de Phone Number [facility] [address] [place] [address], [place] [phone] * (ABNORMAL) Comprehensive metabolic panel (04/10/2024 2:30 PM EST) Pathologist [facility] Sodium 141 133 - 145 mmol/L LAB CHEMISTRY METHOD 04/10/2024 4:21 PM [facility] Potassium 4.1 3.5 - 5.5 mmol/L LAB CHEMISTRY METHOD 04/10/2024 4:21 PM [facility] Chloride 107 96 - 110 mmol/L LAB CHEMISTRY METHOD 04/10/2024 4:21 PM [facility] CO2 30 21 - 32 mmol/L LAB CHEMISTRY METHOD 04/10/2024 4:21 PM [facility] Anion Gap 4 3 - 11 LAB CHEMISTRY METHOD 04/10/2024 4:21 PM [facility] Glucose 144(H) 70 - 100 mg/dL LAB CHEMISTRY METHOD 04/10/2024 4:21 PM [facility] BUN 13 5 - 25 mg/dL LAB CHEMISTRY METHOD 04/10/2024 4:21 PM [facility] Creatinine 1.02 0.50 - 1.10 mg/dL LAB CHEMISTRY METHOD 04/10/2024 4:21 PM [facility] eGFR 59(L) >=60 mL/min/1. 73m2 LAB CHEMISTRY METHOD 04/10/2024 4:21 PM [facility] Comment:Calculation based on the??Chronic Kidney Disease Epidemiology Collaboration (CKD-EPI) equation refit??without adjustment for race. BUN/Creatinine Ratio 12.7 LAB CHEMISTRY METHOD 04/10/2024 4:21 PM [facility] Calcium 9.4 8.5 - 10.5 mg/dL LAB CHEMISTRY METHOD 04/10/2024 4:21 PM [facility] AST (SGOT) 15 10 - 42 unit/L LAB CHEMISTRY METHOD 04/10/2024 4:21 PM [facility] ALT (SGPT) 30 10 - 60 unit/L LAB CHEMISTRY METHOD 04/10/2024 4:21 PM [facility] Alkaline Phosphatase 122(H) 42 - 121 unit/L LAB CHEMISTRY METHOD 04/10/2024 4:21 PM [facility] Total Protein 6.2 6.0 - 8.0 g/dL LAB CHEMISTRY METHOD 04/10/2024 4:21 PM [facility] Albumin 3.5 3.2 - 5.0 g/dL LAB CHEMISTRY METHOD 04/10/2024 4:21 PM [facility] Total Bilirubin 0.3 0.0 - 1.4 mg/dL LAB CHEMISTRY METHOD 04/10/2024 4:21 PM [facility] Blood Venous blood specimen / Unknown Venipuncture / Unknown 04/10/2024 2:30 PM EST 04/10/2024 3:17 PM EST us Wolf MOLINA LAB BLOOD ORDERABLES Final R esult [facility] [address] [place] [address], [place] [phone] from Last 3 Months Insurance MEDICARE MEDICAID - [place] Care Teams Boxing And Pressing Supervisor Relationship Specialty Start Date End Date Anupama Dumont MD [address] [place] [address] PCP - General Internal Medicine 03/19/24
== END 2024-05-15 12:43 | disposition home or self-care (01) ==
LOC: HO.CT 12:42
PROVIDERS: PCP Internal Medicine; Visit Provider Neurological Surgery
DX: M48.062 Spinal stenosis, lumbar region with neurogenic claudication (principal); M41.56 Other secondary scoliosis, lumbar region
CPT/HCPCS: 72131

== ENCOUNTER → 2024-05-15 12:49 | Outpatient (BNV) | payer MEDICARE, MEDICAID, SELFPAY | PROVIDERS: PCP Internal Medicine; Visit Provider Nuclear Medicine | DX: M48.062 Spinal stenosis, lumbar region with neurogenic claudication (principal) | CPT/HCPCS: 72131 ==

== ENCOUNTER 2024-05-29 14:42 | Outpatient (AMB) | payer MEDICARE, MEDICAID, SELFPAY ==
--- NOTE | 2024-05-29 14:58 | A.SPINEOV_ITS ---
Intake Visit Reasons: f/up CT/discuss surgery Intake Note: Ms. Valdez is here today to F/u on her CT and Discuss Surgery. Pump House Operator Required: No Allergies erythromycin base Adverse Reaction (Mild, Verified 05/29/24 14:59) Itching Assessment & Plan Assessment & Plan (1) Lumbar stenosis with neurogenic claudication: Code(s): M48.062 - Spinal stenosis, lumbar region with neurogenic claudication Category: Medical (2) Scoliosis of lumbar region due to degenerative disease of spine in adult: Code(s): M41.56 - Other secondary scoliosis, lumbar region Category: Medical Plan Dear colleague, on 05/29/2024 I saw for follow-up Kayla Pelaez to discuss possible surgery to address her back pain and neurogenic claudication symptoms. The neurogenic claudication symptoms are the limiting factor in her daily functioning. The back pain consist of a left-sided electricity shock when she twists and maybe side of instability. Imaging reviews a lumbar degenerative scoliosis, L4-5 spondylolisthesis, multilevel central spinal stenosis and foraminal stenosis responsible for her symptoms. Unfortunately, a simple decompression will not be sufficient and this patient needs a minimally invasive correction of her lumbar degenerative scoliosis that were indirectly decompress the central canal and exiting nerve roots. I ordered a CT of the lumbar spine to assess if auto fusion of L2-3 was present. I do not think this level was fused and therefore it should be included in the surgical plan. I advised her to undergo an oblique lumbar interbody fusion L2-3, L3-4 and L4-5. I described the procedure, possible complications and expected postoperative outcome. The surgery will be planned for November for various reasons. The patient will return 1 more time to clinic in the beginning of October to finalize the details. I spent 35 minutes in his consult to review imaging and discussing plan of care. Thank you for allowing me take care of your patient. Do not hesitate to call me with any questions or concerns. Dion Raymond MD, PhD Spine Fellowship Trained Neurosurgeon Director, [facility] Coding Level of Care Code Est Pt Level 4 (69534) Diagnoses Lumbar stenosis with neurogenic claudication M48.062 Scoliosis of lumbar region due to degenerative disease of spine in adult M41.56
--- OUTSIDE RECORDS SUMMARY | 2024-05-29 17:37 | XMS_ITS | Clinical Summary ---
Author Organization [facility] [address] [facility] Address [address] [place] [address] Phone Care Team Providers Care Soa Integration Developer Name Role Phone Anupama Dumont MD Primary Care Provider [phone] Allergies Active Allergy Reactions Criticality Noted Date Comments Erythromycin 06/23/2020 Medications Eliquis 2.5 mg tablet Take 2 tablets (5 mg total) by mouth 2 (two) times a day. 180 tablet 2 01/14/2024 Active ALPRAZolam (XANAX) 0.5 mg tablet Take 0.5 mg by mouth at bedtime. Active aspirin 81 mg chewable tablet Take 1 Tablet by mouth daily. 04/17/2023 Active carisoprodoL (SOMA) 250 mg tablet Take [...] TABLET BY MOUTH EVERY DAY 10/19/2023 Active omeprazole OTC (PriLOSEC OTC) 20 mg EC tabletIndicatio ns:Early satiety,Pharyng oesophageal dysphagia,Regur gitation of food Take 1 tablet (20 mg total) by mouth 1 (one) time each day. Do not crush, chew, or split. 90 tablet 3 04/10/2024 Active atorvastatin (LIPITOR) 40 mg tablet TAKE 1 TABLET BY MOUTH DAILY 90 tablet 04/19/2024 Active Active Problems Problem Noted Date Diagnosed [...] with Eliquis 2.5 mg twice daily. Her [id number] score is 5 representing a 7.2% risk [...] Type Department Care Team Description 04/17/2024 Telephone [facility] [address] [facility] [address] [place] [phone] Anupama Dumont MD Medical Records 04/10/2024 2:17 PM EST - 04/10/2024 11:59 PM EST Hospital Encounter [facility]ray [address] [place] [phone] Early satiety Discharge Disposition: Home or Self Care 04/10/2024 1:40 PM EST Office Visit Gastroenterology - [address] [facility] [address] [facility] [address] [place] [phone] Wolf Callaway PA Early satiety (Primary Dx); Pharyngoesophageal dysphagia; Regurgitation of food; Chronic diarrhea 03/20/[address] [facility] [address] [facility] [address] [place] [address] Anupama Dumont MD Medical Records 03/08/2024 Telephone [facility] [address] [place] [address] Aleida Palacios NP Scheduling Follow Up from [...] with agoraphobia Migraines DX:Migraines Major depressive disorder, recurrent DX:Major depressive disorder, recurrent (HCC) COPD (chronic obstructive pu lmonary [...] Tobacco abuse DX:Tobacco abuse Acute respiratory failure with hypoxia DX:Acute respiratory failure with hypoxia (HCC) Pulmonary embolism DX:Pulmonary embolism (HCC); COMMENT: Unprovoked submassive Dyspnea DX:Dyspnea [...] Info) Description 06/20/2024 9:00 AM EDT Appointment [facility] Xray [address] [place] [phone] 07/10/2024 1:20 PM EDT Office Visit Gastroenterology - [address] [facility] [address] [place] [address] Wolf Callaway PA 299 [facility] [address] [place] [address] 07/15/2024 1:30 PM EDT Office Visit [facility] [address] [facility] [address] [place] [phone] Janes Pinzon MD 300 [facility] [address] [place] [address] Health Maintenance Due Date Last Done Comments [...] 40 mg/dL [facility] 1 LDL Chol Calc ([facility]) 58 0 - 99 mg/dL [facility] 1 Blood Venous blood specimen / Unknown 04/26/2024 9:50 AM EST 04/26/2024 Narrative [facility] 1 - 04/27/2024 3:06 AM EST Performed at: ??01 - [facility] [address] ??[id number] Metal Sprayer: Maureen Saleh MD, Phone: ??[phone] us Aleida Palacios PATHOLOGIST ASSISTANT LAB BLOOD ORDERABLES Final R esult [facility] * XR Abdomen 1 View (04/10/2024 2:46 PM EST) Anatomical Region Laterality Modality Body Radiographic Elizabeth ging 04/11/2024 7:55 AM EST Impressions 04/11/2024 7:57 AM EST Nonobstructive bowel gas pattern. ??There is no radiographic evidence of constipation. Code 05432 CT Teleradiology -------- FINAL REPORT -------- Dictated By: Cuco Jo Dictated Date: 04/11/2024 07:55 ET Assigned Physician: Cuco Jo Reviewed and Electronically Signed By: Cuco Jo Signed Date: 04/11/2024 07:57 ET Workstation ID: [id number] Transcribed By: Self Edit Transcribed Date: 04/11/2024 [...] There is no radiographic evidence ofconstipation. Code 96699 CT Teleradiology -------- FINAL REPORT -------- Dictated By: Cuco Jo Dictated Date: 04/11/2024 07:55 ET Assigned Physician: Cuco Jo Reviewed and Electronically Signed By: Cuco Jo Signed Date: 04/11/2024 07:57 ET Workstation ID: [id number] Transcribed By: Self Edit Transcribed Date: 04/11/2024 07:55 ET us Wolf MOLINA IMG XR PROCEDURES Final Resu lt * (ABNORMAL) Vitamin B12 and folate (04/10/2024 2:30 PM EST) Vitamin B-12 550 250 - 900 pcg/mL LAB CHEMISTRY METHOD 04/10/2024 4:21 PM EST [facility] Folate >20.0(H) 2.8 - 17.0 ng/ml LAB CHEMISTRY METHOD 04/10/2024 4:21 PM EST [facility] Blood Venous blood specimen / Unknown Venipuncture / Unknown 04/10/2024 2:30 PM EST 04/10/2024 3:17 PM EST Wolf MOLINA LAB BLOOD ORDERABLES Final R esult [facility] [address] [place] [address], [place] [phone] * Endomysial antibody, IgA (04/10/2024 2:30 PM EST) Pathologist [facility] Endomysial IgA Negative Negative 04/16/2024 11:54 AM [facility] Blood Venous blood specimen / Unknown Venipuncture / Unknown 04/10/2024 2:30 PM EST 04/10/2024 3:17 PM [facility] BLOOD ORDERABLES Final R esult Performing Organization Address City/[facility]/ZIP Co de Phone Number [facility] [address] [place] [address], [place] [phone] * (ABNORMAL) CBC auto differential (04/10/2024 2:30 PM EST) [facility] WBC 6.9 4.8 - 10.8 K/mcL LAB HEMETOLOGY METHOD 04/10/2024 3:22 PM [facility] RBC 4.30 3.80 - 4.80 M/mcL LAB HEMETOLOGY METHOD 04/10/2024 3:22 PM [facility] Hemoglobin 12.7 11.5 - 16.0 g/dL LAB HEMETOLOGY METHOD 04/10/2024 3:22 PM [facility] Hematocrit 39.0 35.0 - 47.0 % LAB HEMETOLOGY METHOD 04/10/2024 3:22 PM [facility] MCV 90.5 79.0 - 98.0 FL LAB HEMETOLOGY METHOD 04/10/2024 3:22 PM [facility] MCH 29.5 27.0 - 32.0 pcg LAB HEMETOLOGY METHOD 04/10/2024 3:22 PM [facility] MCHC 32.6 32.0 - 37.0 g/dL LAB HEMETOLOGY METHOD 04/10/2024 3:22 PM [facility] RDW 14.3 11.0 - 15.0 % LAB HEMETOLOGY METHOD 04/10/2024 3:22 PM [facility] Platelets 254 130 - 400 K/mcL LAB HEMETOLOGY METHOD 04/10/2024 3:22 PM [facility] MPV 9.1 7.0 - 11.0 FL LAB HEMETOLOGY METHOD 04/10/2024 3:22 PM [facility] NRBC 0.0 <1.0 % LAB HEMETOLOGY METHOD 04/10/2024 3:22 PM [facility] NRBC Absolute 0.00 <0.10 K/mcL LAB HEMETOLOGY METHOD 04/10/2024 3:22 PM [facility] Neutrophils Relative 63.0 % LAB HEMETOLOGY METHOD 04/10/2024 3:22 PM [facility] Lymphocytes Relative 24.3 % LAB HEMETOLOGY METHOD 04/10/2024 3:22 PM [facility] Monocytes Relative 7.9 % LAB HEMETOLOGY METHOD 04/10/2024 3:22 PM [facility] Eosinophils Relative 3.6 % LAB HEMETOLOGY METHOD 04/10/2024 3:22 PM [facility] Basophils Relative 0.6 % LAB HEMETOLOGY METHOD 04/10/2024 3:22 PM [facility] Immature Granulocytes Relative 0.6 % LAB HEMETOLOGY METHOD 04/10/2024 3:22 PM [facility] Neutrophils Absolute 4.33 1.50 - 7.00 K/mcL LAB HEMETOLOGY METHOD 04/10/2024 3:22 PM EST [facility] Lymphocytes Absolute 1.67 1.00 - 5.00 K/mcL LAB HEMETOLOGY METHOD 04/10/2024 3:22 PM EST [facility] Monocytes Absolute 0.54 0.20 - 1.00 K/mcL LAB HEMETOLOGY METHOD 04/10/2024 3:22 PM EST [facility] Eosinophils Absolute 0.25 0.00 - 0.50 K/[facility] LAB HEMETOLOGY METHOD 04/10/2024 3:22 PM EST [facility] Basophils Absolute 0.04 0.00 - 0.20 K/[facility] LAB HEMETOLOGY METHOD 04/10/2024 3:22 PM EST [facility] Immature Granulocytes Absolute 0.04(H) 0.00 - 0.03 K/mcL LAB HEMETOLOGY METHOD 04/10/2024 3:22 PM EST [facility] Blood Venous blood specimen / Unknown Venipuncture / Unknown 04/10/2024 2:30 PM EST 04/10/2024 3:17 PM EST Wolf MOLINA LAB BLOOD ORDERABLES Final R esult [facility] [address] [place] [address], * Tissue transglutaminase, IgA (04/10/2024 2:30 PM EST) Tissue Transglutaminase Ab, IgA Quant 1 <4 unit/mL LAB CHEMISTRY METHOD 04/11/2024 2:45 PM EST [facility] Tissue Transglutaminase Ab, IgA Negative Negative LAB CHEMISTRY METHOD 04/11/2024 2:45 PM EST [facility] Blood Venous blood specimen / Unknown Venipuncture / Unknown 04/10/2024 2:30 PM EST 04/10/2024 3:17 PM EST Wolf MOLINA LAB BLOOD ORDERABLES Final R esult Performing Organization Address City/[facility]/ZIP Co de Phone Number [facility] [address] [place] [address], [place] [phone] * Immunoglobulin IgA (04/10/2024 2:30 PM EST) Pathologist [facility] IgA 113 61 - 348 mg/dL LAB CHEMISTRY METHOD 04/10/2024 4:21 PM [facility] Blood Venous blood specimen / Unknown Venipuncture / Unknown 04/10/2024 2:30 PM EST 04/10/2024 3:17 PM EST GueritaHeidy MOLINA LAB BLOOD ORDERABLES Final R esult Performing Organization Address [facility]/ZIP Co de Phone Number [facility] [address] [place] [address], [place] [phone] * (ABNORMAL) Comprehensive metabolic panel (04/10/2024 2:30 PM EST) [facility] Sodium 141 133 - 145 mmol/L LAB CHEMISTRY METHOD 04/10/2024 4:21 PM [facility] Potassium 4.1 3.5 - 5.5 mmol/L LAB CHEMISTRY METHOD 04/10/2024 4:21 PM [facility] Chloride 107 96 - 110 mmol/L LAB CHEMISTRY METHOD 04/10/2024 4:21 PM [facility] CO2 30 21 - 32 mmol/L LAB CHEMISTRY METHOD 04/10/2024 4:21 PM [facility] Anion Gap 4 3 - 11 LAB CHEMISTRY METHOD 04/10/2024 4:21 PM [facility] Glucose 144(H) 70 - 100 mg/dL LAB CHEMISTRY METHOD 04/10/2024 4:21 PM [facility] BUN 13 5 - 25 mg/dL LAB CHEMISTRY METHOD 04/10/2024 4:21 PM [facility] Creatinine 1.02 0.50 - 1.10 mg/dL LAB CHEMISTRY METHOD 04/10/2024 4:21 PM [facility] eGFR 59(L) >=60 mL/min/1. 73m2 LAB CHEMISTRY METHOD 04/10/2024 4:21 PM [facility] Comment:Calculation based on the??Chronic Kidney Disease Epidemiology Collaboration (CKD-EPI) equation refit??without adjustment for race. BUN/Creatinine Ratio 12.7 LAB CHEMISTRY METHOD 04/10/2024 4:21 PM [facility] Calcium 9.4 8.5 - 10.5 mg/dL LAB CHEMISTRY METHOD 04/10/2024 4:21 PM [facility] AST (SGOT) 15 10 - 42 unit/L LAB CHEMISTRY METHOD 04/10/2024 4:21 PM [facility] ALT (SGPT) 30 10 - 60 unit/L LAB CHEMISTRY METHOD 04/10/2024 4:21 PM [facility] Alkaline Phosphatase 122(H) 42 - 121 unit/L LAB CHEMISTRY METHOD 04/10/2024 4:21 PM [facility] Total Protein 6.2 6.0 - 8.0 g/dL LAB CHEMISTRY METHOD 04/10/2024 4:21 PM [facility] Albumin 3.5 3.2 - 5.0 g/dL LAB CHEMISTRY METHOD 04/10/2024 4:21 PM [facility] Total Bilirubin 0.3 0.0 - 1.4 mg/dL LAB CHEMISTRY METHOD 04/10/2024 4:21 PM [facility] Blood Venous blood specimen / Unknown Venipuncture / Unknown 04/10/2024 2:30 PM EST 04/10/2024 3:17 PM EST Wolf MOLINA LAB BLOOD ORDERABLES Final R esult [facility] [address] [place] [address], from Last 3 Months Insurance MEDICARE MEDICAID - [place] Care Teams Soa Integration Developer Relationship Specialty Start Date End Date Anupama Dumont MD [address] [place] [address] PCP - General Internal Medicine 03/19/24
--- OUTSIDE RECORDS SUMMARY | 2024-05-29 17:37 | XMS_ITS | Encounter Summary ---
Author Organization [facility] Address [address] [place] [address] Care Team Providers Care Boiler Tender Name Role Phone Anupama Dumont MD Primary Care Provider [phone] Reason for Visit * Reason Onset Date Comments Medical Records 04/17/2024 Encounter Details Date Type Department Care Team (Late st Contact Info) Description 04/17/2024 Telephone [facility] Cardiology [facility] [address] [place] [phone] Anupama Dumont MD [address] [facility] [address] [place] [address] Medical Records Social History Tobacco Use Types [...] Office Note and 10/11/2023 Echo report to [facility] at [phone] on 04/17/2024 documented in this encounter Plan of Treatment Upcoming Encounters Date Type Department Care Team (Late st Contact Info) Description 06/20/2024 9:00 AM EDT Appointment [facility] Xray [address] [place] [phone] 07/10/2024 1:20 PM EDT Office Visit Gastroenterology - [address] [facility] [address] [place] [address] Wolf Callaway PA [address] [facility] [address] [place] [address] 07/15/2024 1:30 PM EDT Office Visit [facility] - [address] [facility] [address] [place] [address] Janes Pinzon MD 300 [facility] [address] [place] [address] documented as of this encounter Visit Diagnoses Not on filedocumented in this encounter Care Teams Boiler Tender Relationship Specialty Start Date End Date Anupama Dumont MD [address] [facility] [address] [place] [address] PCP - General Internal Medicine 03/19/24 documented as of this encounter
== END 2024-05-29 16:25 | disposition home or self-care (01) ==
LOC: HO.HNS 14:43
PROVIDERS: PCP Internal Medicine; Visit Provider Neurological Surgery
DX: M48.062 Spinal stenosis, lumbar region with neurogenic claudication (principal); M41.56 Other secondary scoliosis, lumbar region
CPT/HCPCS: 99214

== ENCOUNTER → 2024-05-29 14:42 | Outpatient (BNVA) | payer MEDICARE, MEDICAID, SELFPAY | PROVIDERS: PCP Internal Medicine; Visit Provider Neurological Surgery | DX: M48.062 Spinal stenosis, lumbar region with neurogenic claudication (principal); M41.56 Other secondary scoliosis, lumbar region | CPT/HCPCS: 99212 ==

== ENCOUNTER 2024-10-11 13:28 | Outpatient (AMB) | payer MEDICARE, MEDICAID, SELFPAY ==
--- NOTE | 2024-10-11 13:32 | HO.SPINEOV ---
Intake Visit Reasons: follow up Intake Note: Ms. Valdez is here today for a follow up. Allergies erythromycin base Adverse Reaction (Mild, Verified 05/29/24 14:59) Itching Assessment & Plan Assessment & Plan (1) Scoliosis of lumbar region due to degenerative disease of spine in adult: Code(s): M41.56 - Other secondary scoliosis, lumbar region Category: Medical Plan Dear colleague, On 10/11/2024, I saw for preoperative visit Kayla Valdez. As you know, she was offered an oblique lumbar interbody fusion L2-L5. For detailed history and physical I refer to our previous notes. Today we went in detail in the procedure, possible complications and expected postoperative outcome. She lives alone but can have a friend over to watch her. I told her that she will most likely stay in-house from a night. Recovery takes approximately 6 weeks to 3 months during which she is allowed normal activities. She will get a preoperative clearance from the primary care physician. We will obtain notes from her wireless sales consultant Dr. Ewelina Samuels and [facility]. She mentioned that she does not have to see Dr. Samuels anymore as her pulmonary status is stable. No active cardiac issues. She is scheduled for 12/10/2024. I spent 30 minutes in his consult answering questions. Dion Raymond MD, PhD Spine Fellowship Trained Neurosurgeon Director, [facility] [place] Coding Level of Care Code Est Pt Level 4 (78870) Diagnoses Scoliosis of lumbar region due to degenerative disease of spine in adult M41.56
--- OUTSIDE RECORDS SUMMARY | 2024-10-11 13:32 | XMS_ITS | Clinical Summary ---
Author Organization [facility] [address] [facility] Address [address] [place] [address] Phone Care Team Providers Care Tow Truck Operator Name Role Phone Anupama Dumont MD Primary Care Provider [phone] Allergies Active Allergy Reactions Criticality Noted Date [...] daily. 3 Active multivitamin (MULTIPLE VITAMINS ORAL) Take by mouth daily. Active fenofibrate (TRICOR) 48 mg tablet TAKE 1 TABLET BY MOUTH EVERY DAY 4 Active omeprazole OTC (PriLOSEC OTC) 20 mg EC tabletIndication s:Early satiety,Pharyngo esophageal dysphagia,Regurg itation of food Take 1 tablet (20 mg total) by mouth 1 (one) time each day. Do not crush, chew, or split. 90 tablet 3 5 04/10/19 26 Active Additional Information Patient not taking.Reported on 07/15/2024 fluticasone propionate (FLONASE) 50 mcg/actuation nasal spray Administer 1 spray into each nostril 1 (one) time each day. 5 Active levalbuterol (XOPENEX HFA) 45 mcg/actuation inhaler Inhale 2 puffs by mouth every 6 (six) hours if needed for shortness of breath. for wheezing 5 Active metFORMIN (GLUCOPHAGE) 500 mg tablet Take 1 tablet (500 mg total) by mouth 2 (two) times a day with meals. 4 Active omeprazole (PriLOSEC) [address] capsule Take 1 capsule (20 mg total) by mouth 1 (one) time each day. 5 Active atorvastatin (LIPITOR) 40 mg tabletIndication s:PAF (paroxysmal atrial fibrillation) (CMS/HCC V24, CMS/HCC V28),Mixed hyperlipidemia,P ulmonary embolism without acute cor pulmonale, unspecified chronicity, unspecified pulmonary embolism type (CMS/HCC V24, CMS/HCC V28),Coronary artery disease involving duckwater coronary artery of duckwater heart without angina pectoris Take 1 tablet (40 mg total) by mouth 1 (one) time each day. 90 tablet 3 5 07/11/19 26 Active Active Problems Problem Noted Date Diagnosed Date Coronary artery disease invo lving duckwater coronary artery of duckwater heart without angina pectoris 07/15/2024 Bilateral carotid artery stenosis 07/15/2024 Pulmonary emphysema (CMS/HCC V24, CMS/HCC V28) 0 07/15/2024 Current every day smoker 07/15/2024 Pulmonary nodules 07/12/2024 Class 1 obesity 07/08/2024 Lumbar pain 07/08/2024 Lumbar stenosis with neurogenic claudication 07/2024 Bruit 10/10/2022 Overview (03/20/2024): Last Assessment & [...] on her body habitus. PAF (paroxysmal atrial fibri llation) ([facility] V24, [facility] V28) 10/28/2021 Overview (03/20/2024): Last Assessment & Plan: Patient has history of paroxysmal atrial fibrillation. She also has history of pulmonary embolism in the past. She has been on anticoagulation with Eliquis 2.5 mg twice daily. Her [id number] score is 5 representing a 7.2% risk for thromboembolism. Given her age, weight and renal function her Eliquis dose is not adequate. I will increase her Eliquis to 5 mg twice daily. I explained the importance of appropriate dosing with the patient and she is agreeable to make this change. We will update an echocardiogram. Pulmonary embolism ([facility] V24, CMS/[facility] V28) Overview (03/20/2024): Last Assessment & Plan: We [...] changes to her medications today. PSVT (paroxysmal supraventri cular tachycardia) ([facility] V24) 08/20/2020 Overview (03/20/2024): Last Assessment & Plan: Patient has history of paroxysmal supraventricular tachycardia. She remains on metoprolol for rate control and denies any palpitations. Encounters Date Type Department Care Team Description 08/09/2024 12:00 PM EDT Ancillary Procedure [facility] - [address] [place] [address] PAF (paroxysmal atrial fibrillation) (CMS/[facility] V24, CMS/[facility] V28); Mixed hyperlipidemia; Pulmonary embolism without acute cor pulmonale, unspecified chronicity, unspecified pulmonary embolism type ([facility] V24, CMS/[facility] V28); Coronary artery disease involving duckwater coronary artery of duckwater heart without angina pectoris; Bilateral carotid artery stenosis; Pulmonary emphysema, unspecified emphysema type (CMS/[facility] V24, [facility] V28); Current every day smoker 07/15/2024 1:30 PM EDT Office Visit [facility] - [address] [place] [address] Jaqueline Andrade MD PAF (paroxysmal atrial fibrillation) ([facility] V24, [facility] V28) (Primary Dx); Mixed hyperlipidemia; Pulmonary embolism without acute cor pulmonale, unspecified chronicity, unspecified pulmonary embolism type (CMS/HCC V24, CMS/[facility] V28); Coronary artery disease involving duckwater coronary artery of duckwater heart without angina pectoris; Bilateral carotid artery stenosis; Pulmonary emphysema, unspecified emphysema type ([facility] V24, [facility] V28); Current every day smoker from Last 3 Months Immunizations Name Administration Dates Next Due Influenza Quadravalent, 0.5m l (Fluzone High-dose) 65yo and older 12/07/2022,12/22/2021,12/06/2020 Influenza Quadravalent, MDCK , 0.5ml, preservative free (Flucelvax) 6mo and older 12/13/2016 Influenza trivalent, 0.5mL ( Fluzone High-dose) 65yo and older 12/05/2017 Influenza trivalent, 0.5mL, preservative free (Fluarix; FluLaval; Fluzone) ages 6mo and older (Afluria) 3 years and older 12/05/2015,12/24/2014 Pneumococcal conjugate 13 va lent (Prevnar 13, PCV13) 2mo and older 12/05/2017 Pneumococcal conjugate 20 va lent (Prevnar 20, PCV 20) 2mo and older 11/10/2023 Pneumococcal polysaccharide 23 valent (Pneumovax 23) 2yo and older 08/18/2010 RSV, bivalent, protein subun it RSVpreF, 0.5mL, Preservative Free (ABRYSVO) 60yo and older or 32 through 36 wks of 12/07/2022 Zoster recombinant (Shingrix ) 19yo and older 11/10/2023,06/01/2023 Surgical History Surgery Date Site/Laterality Comments OTHER [...] Migraines DX:Migraines Major depressive disorder, r ecurrent ([facility] V24) DX:Major depressive disorder , recurrent ([facility]) COPD (chronic obstructive pu lmonary disease) ([facility] V24, [facility] V28) DX:COPD (chronic o bstructive pulmonary disease) ([facility]) Alcohol dependence in sustai ninfa full remission ([facility] V24, [facility] V28) DX:Alcohol depend ence in sustained full remission ([facility]) Anxiety DX:Anxiety Back pain DX:Back pain Carpal tunnel syndrome, bilateral DX:Carpal tunnel syndrome, bilateral Depression DX:Depression Emphysema lung ([facility] V24, [facility] V28) DX:Emphysema lung ([facility]) IFG (impaired fasting glucose) D X:IFG (impaired fasting glucose) Tobacco abuse DX:Tobacco abuse Acute respiratory failure wi th hypoxia ([facility] V24, [facility] V28) DX:Acute respiratory failur e with hypoxia ([facility]) Pulmonary embolism ([facility] V24, [facility] V28) DX:Pulmonary embolism ([facility]); COMMENT: Unprovoked submassive Dyspnea DX:Dyspnea RLS (restless legs syndrome) DX: RLS (restless legs syndrome) Hyperlipidemia Hypertension Family History Medical History Relation Name Comments [...] Sign Reading Time Taken Comments Blood Pressure 130/70 07/15/2024 1:28 PM EDT Pulse 66 07/15/2024 1:28 PM EDT Temperature - - Respiratory Rate - - Oxygen Saturation 97% 07/15/2024 1:28 PM EDT Inhaled Oxygen Concentration - - Weight 83.5 kg (184 lb) 07/15/2024 1:28 PM EDT Height 160 cm (5' 3 ) 07/15/2024 1:28 PM EDT Body Mass Index 32.59 07/15/2024 1:28 PM EDT Plan of Treatment Upcoming Encounters Date Type Department Care Team (Late st Contact Info) Description 10/18/2024 1:30 PM EDT Ancillary Procedure [facility] - [facility] [address] [facility] [address] [place] [phone] 11/14/2024 1:50 PM EDT Office Visit Gastroenterology - [address] [id number] [place] [address] [address] Health Maintenance Due Date Last Done Comments Breast Cancer Screening 1950 DTaP,Tdap,and Td Vaccines (1 - Tdap) 11/25/1971 Colorectal Cancer Screening: Colonoscopy 02/12/2022 Falls Risk Assessment 02/12/2022 Hepatitis C Screening 02/12/2022 Medicare Annual Wellness Visit 02/12/2022 Osteoporosis Screening (Bone Density Screening) 02/12/2022 Social Influencers of Health Screening 02/12/2022 Depression Screening 03/06/2024 Influenza Vaccine (#1) 2024 , 12/22/2021, 12/06/2020, Additional history exists Hypertension/CHF/CAD Annual BMP Blood Test 04/10/2025 04/10/2024 Cholesterol Screening (Lipid Panel) 07/17/2029 07/17/2024, 04/26/2024 RSV Immunization Adult Patients Completed 12/07/2022 Pneumococcal Vaccine: 50+ Years Completed 11/10/2023, 12/05/2017, 08/18/2010 Zoster Vaccines Completed 11/10/2023, 06/01/2023 COVID-19 Vaccine Completed 06/21/2024, , 12/07/2022, Additional history exists HIB Vaccines Aged Out [...] age to complete this topic Meningococcal B Vaccine Aged Out No l onger eligible based on patient's age to complete this topic RSV Immunization Patients Under 20 months Aged Out No longer eligible based on patient's age to complete this topic Varicella Vaccines Aged Out No longer eligible based on patient's age to complete this topic Procedures Procedure Name Priority Date/Time Associated Diagnosis Comments VAS US DUPLEX CAROTID BILATERAL Routine 08/09/2024 12:17 PM EDT PAF (paroxysmal atrial fibrillation) (CMS/HCC V24, CMS/HCC V28) Mixed hyperlipidemia Pulmonary embolism without acute cor pulmonale, unspecified chronicity, unspecified pulmonary embolism type (CMS/HCC V24, CMS/HCC V28) Coronary artery disease involving duckwater coronary artery of duckwater heart without angina pectoris Bilateral carotid artery stenosis Pulmonary emphysema, unspecified emphysema type (CMS/HCC V24, CMS/HCC V28) Current every day smoker SPECIMEN STATUS REPORT Routine 05/14/202 5 2:15 PM EDT LIPID PANEL Routine 07/17/2024 2:15 PM EDT ECG 12-LEAD Routine 07/15/2024 1:35 PM EDT PAF (paroxysmal atrial fibrillation) (CMS/HCC V24, CMS/HCC V28) COMPREHENSIVE METABOLIC PANEL Routine 04/10/2024 2:30 PM EST Early satiety Pharyngoesophageal dysphagia Regurgitation of food Chronic diarrhea from Last 3 Months or Most Recently Relevant to Health Maintenance Results * Vascular US duplex carotid bilateral (08/09/2024 12:17 PM EDT) Left CCA dist swanson 13 cm/s CV VAS LAB Left CCA dist sys 71 cm/s CV [facility] LAB LEFT COMMON CAROTID ARTERY MID D 8 cm/s CV [facility] LAB LEFT COMMON CAROTID ARTERY MID S 68 cm/s CV VAS LAB Left CCA prox swanson 11 cm/s CV VAS LAB Left CCA prox sys 90 cm/s CV V[facility] LAB LEFT EXTERNAL CAROTID ARTERY D 3 cm/s CV V[facility] LAB Left ECA sys 209 cm/s CV V[facility] LAB Left ICA/CCA sys 2.20 no units CV VAS LAB Left ICA dist swanson 31 cm/s CV VAS LAB Left ICA dist sys 153 cm/s CV VAS LAB Left ICA mid swanson 21 cm/s CV VAS LAB Left ICA mid sys 93 cm/s CV VAS LAB Left ICA prox swanson 12 cm/s CV VAS LAB Left ICA prox sys 72 cm/s CV VAS LAB Left vertebral sys 79 cm/s CV VAS LAB Right CCA dist swanson 7 cm/s CV VAS LAB Right cca dist sys 59 cm/s CV VAS LAB RIGHT COMMON CAROTID ARTERY MID D 6 cm/s CV VAS LAB RIGHT COMMON CAROTID ARTERY MID S 55 cm/s CV VAS LAB Right CCA prox swanson 9 cm/s CV VAS LAB Right CCA prox sys 95 cm/s CV VAS LAB RIGHT EXTERNAL CAROTID ARTERY D 8 cm/s CV VAS LAB Right eca sys 211 cm/s CV VAS LAB Right ICA/CCA sys 1.40 no units CV VAS LAB Right ICA dist swanson 21 cm/s CV VAS LAB Right ICA dist sys 85 cm/s CV VAS LAB Right ICA mid swanson 19 cm/s CV VAS LAB Right ICA mid sys 84 cm/s CV VAS LAB Right ICA prox swanson 15 cm/s CV VAS LAB Right ICA prox sys 72 cm/s CV V[facility] LAB Right vertebral sys 52 cm/s CV V[facility] LAB Left Prox Subclavian PSV 176 cm/s CV [facility] LAB Right Prox Subclavian PSV 100 cm/s CV [facility] Right arm BP 149 mmHg CV [facility] Left arm BP 167 mmHg CV VAS LAB Anatomical Region Laterality Modality Vascular, Abdomen Ultrasound Narrative 08/11/2024 7:29 PM EDT RIGHT. 1. There is atherosclerotic plaque in the right carotid system as noted below. 2. There is a < 50% stenosis in the right internal carotid artery based on Doppler velocity. 3. The subclavian and vertebral arteries have normal Doppler flow patterns. 4. There are elevated velocities in the right external carotid artery, suggestive of a significant stenosis. LEFT. 1. There is atherosclerotic plaque in the left carotid system as noted below. 2. There is a 50-69% stenosis in the left internal carotid artery based on Doppler velocity. Of note, there is acoustic shadowing in the left ICA which could limit evaluation of the degree of stenosis. 3. The subclavian and vertebral arteries have normal Doppler flow patterns. 4. There are elevated velocities in the left external carotid artery, suggestive of a significant stenosis The interpretation of this study was done following the diagnostic criteria recommendations contained in the IAC updated recommendations for carotid stenosis interpretation criteria document published by IAC in January 2023. Right Carotid The CCA has no significant plaque. The proximal ICA has mild heterogeneous plaque. There is evidence of intimal thickening in the ECA. Right BP= 149/56 Vertebral flow is antegrade. Left Carotid The CCA has no significant plaque. The proximal ICA has mild heterogeneous plaque. The ECA has minimal heterogeneous plaque. Left BP= 167/53 Vertebral flow is antegrade. Housekeeping Aid Details A baca scale, color and doppler analysis ultrasound was performed. During the study longitudinal and transverse views were obtained. Pulsed wave doppler was performed. us Jaqueline Andrade MD CV VASCULAR PROCEDURES Final Re sult * SPECIMEN STATUS REPORT (07/17/2024 2:15 PM EDT) Specimen Status Report Comment [facility] Comment: Ambig Abbrev LP Default Ambig Abbrev LP Default A hand-written panel/profile was received from your office. In accordance with the [facility] Ambiguous Test Code Policy dated September 2002, we have completed your order by using the closest currently or formerly recognized AMA panel. We have assigned Lipid Panel, Test Code #[id number] to this request. If this is not the testing you wished to receive on this specimen, please contact the [facility] Client Inquiry/Technical Services Department to clarify the test order. We appreciate your business. 07/17/2024 2:15 PM EDT 07/17/2024 Narrative [facility] 1 - 07/18/2024 9:07 AM EDT Performed at: - [address] [id number] Behaviour Support Teacher: Maureen Saleh MD, Phone: [phone] Jaqueline Andrade MD LAB BLOOD ORDERABLES Final Resu lt Performing Organization Address [facility] de Phone Number [facility] * Lipid panel (07/17/2024 2:15 PM EDT) Cholesterol Total 113 100 - 199 mg/dL [facility] 1 Triglycerides 132 0 - 149 mg/dL [facility] 1 HDL Cholesterol 44 >39 mg/dL [facility] 1 VLDL Cholesterol Calculated 23 5 - 40 mg/dL [facility] 1 LDL Chol Calc ([facility]) 46 0 - 99 mg/dL [facility] 1 07/17/2024 2:15 PM EDT 07/17/2024 Narrative [facility] 1 - 07/18/2024 9:07 AM EDT Performed at: - [address] [id number] Behaviour Support Teacher: Maureen Saleh MD, Phone: [phone] Jaqueline Andrade MD LAB BLOOD ORDERABLES Final Resu lt Performing Organization Address [facility]/ZIP Co de Phone Number [facility] * ECG 12 lead (07/15/2024 1:35 PM EDT) Ventricular Rate ECG 66 BPM GEMUSE Atrial Rate 66 BPM GEMUSE P-R Interval 148 ms GEMUSE QRS Duration 78 ms GEMUSE Q-T Interval 394 ms GEMUSE QTc 413 ms GEMUSE P Wave Lynx 57 degrees GEMUSE R Lynx 8 degrees GEMUSE T Lynx 108 degrees GEMUSE ECG Interpretation Normal sinus rhythm Possible Left atrial enlargement Septal infarct (cited on or before 15-JUL-2024) ST and T wave abnormality, consider lateral ischemia Abnormal ECG When compared with ECG of 16-JUL-2010 18:44, Serial changes of Septal infarct Present Confirmed by Humble ANDRADE, JAQUELINE ([id number]) on 07/15/2024 2:26:06 PM GEMUSE 07/15/2024 1:35 PM EDT 07/15/2024 2:26 PM EDT Jaqueline Andrade MD ECG ORDERABLES Final Result GEMUSE * (ABNORMAL) Comprehensive metabolic panel (04/10/2024 2:30 PM EST) Pathologist [facility] Sodium 141 133 - 145 mmol/L LAB CHEMISTRY METHOD 04/10/2024 4:21 PM [facility] Potassium 4.1 3.5 - 5.5 mmol/L LAB CHEMISTRY METHOD 04/10/2024 4:21 PM [facility] Chloride 107 96 - 110 mmol/L LAB CHEMISTRY METHOD 04/10/2024 4:21 PM [facility] CO2 30 21 - 32 mmol/L LAB CHEMISTRY METHOD 04/10/2024 4:21 PM [facility] Anion Gap 4 3 - 11 LAB CHEMISTRY METHOD 04/10/2024 4:21 PM [facility] Glucose 144(H) 70 - 100 mg/dL LAB CHEMISTRY METHOD 04/10/2024 4:21 PM [facility] BUN 13 5 - 25 mg/dL LAB CHEMISTRY METHOD 04/10/2024 4:21 PM [facility] Creatinine 1.02 0.50 - 1.10 mg/dL LAB CHEMISTRY METHOD 04/10/2024 4:21 PM [facility] eGFR 59(L) >=60 mL/min/1. 73m2 LAB CHEMISTRY METHOD 04/10/2024 4:21 PM [facility] Comment:Calculation based on the Chronic Kidney Disease Epidemiology Collaboration (CKD-EPI) equation refit without adjustment for race. BUN/Creatinine Ratio 12.7 LAB CHEMISTRY METHOD 04/10/2024 4:21 PM [facility] Calcium 9.4 8.5 - 10.5 mg/dL LAB CHEMISTRY METHOD 04/10/2024 4:21 PM [facility] AST (SGOT) 15 10 - 42 unit/L LAB CHEMISTRY METHOD 04/10/2024 4:21 PM [facility] ALT (SGPT) 30 10 - 60 unit/L LAB CHEMISTRY METHOD 04/10/2024 4:21 PM [facility] Alkaline Phosphatase 122(H) 42 - 121 unit/L LAB CHEMISTRY METHOD 04/10/2024 4:21 PM [facility] Total Protein 6.2 6.0 - 8.0 g/dL LAB CHEMISTRY METHOD 04/10/2024 4:21 PM [facility] Albumin 3.5 3.2 - 5.0 g/dL LAB CHEMISTRY METHOD 04/10/2024 4:21 PM [facility] Total Bilirubin 0.3 0.0 - 1.4 mg/dL LAB CHEMISTRY METHOD 04/10/2024 4:21 PM [facility] Blood Venous blood specimen / Unknown Venipuncture / Unknown 04/10/2024 2:30 PM EST 04/10/2024 3:17 PM EST us Wolf MOLINA LAB BLOOD ORDERABLES Final R esult [facility] [address] [place] [address], from Last 3 Months or Most Recently Relevant to Health Maintenance Insurance MEDICARE MEDICAID - [place] Care Teams Tow Truck Operator Relationship Specialty Start Date End Date Anupama Dumont MD [address] [place] [address] PCP - General Internal Medicine 03/19/24
== END 2024-10-11 14:11 | disposition home or self-care (01) ==
LOC: HO.HNS 13:29
PROVIDERS: PCP Internal Medicine; Visit Provider Neurological Surgery
DX: M41.56 Other secondary scoliosis, lumbar region (principal)
CPT/HCPCS: 99214

== ENCOUNTER → 2024-10-11 13:28 | Outpatient (BNVA) | payer MEDICARE, MEDICAID, SELFPAY | PROVIDERS: PCP Internal Medicine; Visit Provider Neurological Surgery | DX: Z01.818 Encounter for other preprocedural examination (principal); M41.56 Other secondary scoliosis, lumbar region | CPT/HCPCS: 99212 ==

== ENCOUNTER 2025-01-17 12:57 | Outpatient (AMB) | payer MEDICARE, MEDICAID, SELFPAY ==
--- NOTE | 2025-01-17 13:02 | A.SPINEOV_ITS ---
Intake Visit Reasons: Follow up surgical cxl'n Intake Note: Ms. Valdez is here today to F/u on surgical cancelation. Terminal Make Up Operator Required: No Allergies erythromycin base Adverse Reaction (Mild, Verified 05/29/24 14:59) Itching Assessment & Plan Assessment & Plan (1) Scoliosis of lumbar region due to degenerative disease of spine in adult: Code(s): M41.56 - Other secondary scoliosis, lumbar region Category: Medical Plan On 01/17/2025, I saw for a follow-up Kayla Valdez. She was scheduled to undergo an L2-L5 oblique lumbar interbody fusion on January 14, 2025. She was cleared by lastex operator with minimal increased perioperative risk. She was declined by anesthesia for severe shortness of breath. I had her back in my office to re-evaluate her as I did not remember the patient to be of severe shortness of breath. I had a walk up the stairs which she could do without difficulties. I then walked her over to the hospital to see ,, anesthesiologist for an evaluation. We walked in the wind which did not increase her RR. She had to stop in the hospital 1 time due to back pain. We continued our conversation without difficulty. spoke to the patient in depth about general anesthesia in the possibility of ICU stay if she can not come of the breathing tube. She had lumbar surgery done proximally 4 years ago at [facility] with general anesthesia, which was uneventful and done in day surgery. We decided to reschedule her for an L2-L5 oblique lumbar interbody fusion. She is tentatively scheduled for 03/18/2025. I spent 40 minutes in his consult for history physical exam and evaluation by our anesthesiology department. Dion Raymond MD, PhD Spine Fellowship Trained Neurosurgeon Director, [facility] [place] [facility] Coding Level of Care Code Est Pt Level 5 (59090) Diagnoses Scoliosis of lumbar region due to degenerative disease of spine in adult M41.56
--- OUTSIDE RECORDS SUMMARY | 2025-01-17 18:59 | XMS_ITS | Clinical Summary ---
Author Organization [facility] [address] [facility] Address [address] [place] [address] Phone Care Team Providers Care Sourcing Intern Name Role Phone Anupama Dumont MD Primary Care Provider [phone] Allergies Active Allergy Reactions Criticality Noted Date Comments Erythromycin 06/23/2020 Medications Eliquis 2.5 mg tablet Take 2 tablets (5 mg total) by mouth 2 (two) times a day. 180 tablet 2 01/14/20 24 Active Additional Information Patient not taking.Reported on 01/03/2025 ALPRAZolam (XANAX) 0.5 mg tablet Take 0.5 mg by mouth at bedtime. Active aspirin 81 mg chewable tablet Take 1 Tablet by mouth daily. 04/17/19 24 Active carisoprodoL (SOMA) 250 mg tablet Take 1 Tablet by mouth 3 times daily as needed. Active gabapentin (NEURONTIN) 600 mg tablet Take 1 tablet by mouth 2 Times Daily. 10/02/19 13 Active metoprolol tartrate (LOPRESSOR) 50 mg tablet Take 50 mg by mouth 2 times daily. Active omega-3 acid ethyl esters (LOVAZA) 1 gram capsule daily. 10/02/19 13 Active sertraline (ZOLOFT) 100 mg tablet Take 1 tablet by mouth daily. 10/02/19 13 Active BUPROPION HCL ORAL Take 300 mg by mouth daily. 10/02/19 13 Active multivitamin (MULTIPLE VITAMINS ORAL) Take by mouth daily. Active fenofibrate (TRICOR) 48 mg tablet TAKE 1 TABLET BY MOUTH EVERY DAY 10/19/19 24 Active fluticasone propionate (FLONASE) 50 mcg/actuation nasal spray Administer 1 spray into each nostril 1 (one) time each day. 03/08/19 25 Active levalbuterol (XOPENEX HFA) 45 mcg/actuation inhaler Inhale 2 puffs by mouth every 6 (six) hours if needed for shortness of breath. for wheezing 04/01/19 25 Active metFORMIN (GLUCOPHAGE) 500 mg tablet Take 1 tablet (500 mg total) by mouth 2 (two) times a day with meals. 02/26/20 24 Active atorvastatin (LIPITOR) 40 mg tabletIndication s:PAF (paroxysmal atrial fibrillation) (CMS/HCC V24, CMS/HCC V28),Mixed hyperlipidemia,P ulmonary embolism without acute cor pulmonale, unspecified chronicity, unspecified pulmonary embolism type (CMS/HCC V24, CMS/[facility] V28),Coronary artery disease involving yakutat coronary artery of yakutat heart without angina pectoris Take 1 tablet (40 mg total) by mouth 1 (one) time each day. 90 tablet 3 07/16/19 25 026 Active loperamide (Imodium A-D) 2 mg tabletIndication s:Chronic diarrhea Take 2 tablets (4 mg total) by mouth 2 (two) times a day. 360 each 11/15/19 25 026 Active apixaban (ELIQUIS) 5 mg tablet Take 1 tablet (5 mg total) by mouth 2 (two) times a day. Active verapamil SR (CALAN-SR) 120 mg CR tablet Take 1 tablet (120 mg total) by mouth at bedtime. Do not crush or chew. 30 each 11/22/19 25 026 Active losartan (COZAAR) 50 mg tabletIndication s:Primary hypertension Take 2 tablets (100 mg total) by mouth 1 (one) time each day. Take 1 Tablet by mouth daily. 180 each 1 01/04/20 25 Active losartan (COZAAR) 50 mg tablet Take 1 Tablet by mouth daily. 025 Discontin ued(Reord er) omeprazole OTC (PriLOSEC OTC) 20 mg EC tabletIndication s:Early satiety,Pharyngo esophageal dysphagia,Regurg itation of food Take 1 tablet (20 mg total) by mouth 1 (one) time each day. Do not crush, chew, or split. 90 tablet 3 04/10/19 25 025 Discontin ued(Thera py completed ) omeprazole (PriLOSEC) [address] capsule Take 1 capsule (20 mg total) by mouth 1 (one) time each day. 04/10/19 025 Discontin ued(Thera py completed ) Active Problems Problem Noted Date Diagnosed Date Peripheral edema 01/07/2025 Assessment & Plan (01/07/2025 3:46 PM EST): Very minimal on exam today; conservative measures with compression, elevation, and low-sodium diet were encouraged. She will call us for any worsening symptoms. Secondary hypercoagulable state (CMS/[facility] V24) Assessment & Plan (01/07/2025 3:46 PM EST): Hypertrophic cardiomyopathy (CMS/HCC V24, CMS/HC C V28) 11/21/2024 Assessment & Plan (01/07/2025 3:46 PM EST): She remains short of breath with exertion on both verapamil and metoprolol. She reports she stays well hydrated. No finalized report is available for her recent echocardiogram from 12/24/2024; upon Dr. Pinzon's return on 01/07/2025, I will ask him to review this as decide on recommendations moving forward as well as those related to her upcoming surgery. In the interim, she will continue both medications; Dr. Pinzon previously discussed Camzyos with her which she declined due to the potential for systolic heart failure in addition to other potential adverse effects. We discussed the role and remaining well-hydrated to assist with limiting symptoms and she verbalizes understanding of this. We discussed risk reduction through lifestyle modifications including healthy diet, routine exercise, and weight management. We reviewed heart failure management including low sodium diet, symptom surveillance, daily weights, and medication compliance. I've asked the patient to call if they develop worsening symptoms of heart failure such as increased shortness of breath, new or worsening cough, increased swelling in the legs or ankles, or weight gain of more than 2 pounds in one day or 4 pounds in one week. Addendum: Dr. Pinzon and I were able to review the patient's most recent echocardiogram today which remains relatively unchanged from previous. Recommendations in regard to surgery are as below. Coronary artery disease invo lving yakutat coronary artery of yakutat heart without angina pectoris 07/15/2024 Assessment & Plan (01/07/2025 3:46 PM EST): She has had persistent dull and constant chest pain for many years now; previous exercis enuclear stress test in for this same reason was normal. She has not had any new chest pain or pressure at rest or with exertion; her shortness of breath is her limiting factor and the cause for this remians a bit unclear but is likely multifactorial related to underlying pulmonary disease, hypertrophic cardiomyopathy, obesity, and deconditioning. Overall, her symptoms apper unchanged from previous and without clear indication that they are related to underlying ischemia. Continue metoprolol, atorvastatin and aspirin. We discussed cardiac risk reduction through lifestyle modifications with healthy diet, and weight management. The patient was advised to seek emergent medical attention by calling 911 if they were to develop severe dyspnea, chest pain that did not resolve with rest, or if they were to faint. Bilateral carotid artery stenosis 07/15/2024 Pulmonary emphysema (CMS/HCC V24, CMS/HCC V28) 0 07/15/2024 Current every day smoker 07/15/2024 Assessment & Plan (01/07/2025 3:46 PM EST): Tobacco Abuse: We have talked about the importance of smoking cessation on this visit. We spent approximately 4 minutes in face-face consultation. She reports that she is doing very well with cutting back and will continue to work on this. Pulmonary nodules 07/12/2024 Class 1 obesity 07/08/2024 Assessment & Plan (01/07/2025 3:46 PM EST): Patient is obese. Approaches towards weight loss are discussed, including burning more calories than one takes in by portion control and regular exercise with an emphasis on duration rather than intensity. Lumbar pain 07/08/2024 Lumbar stenosis with neurogenic claudication 07/2024 Finding of above normal blood pressure Benign neoplasm of skin of left lower eyelid 05/2024 Benign neoplasm of skin of right lower eyelid Anxiety disorder 03/20/2023 Bruit 10/10/2022 Overview (03/20/2024): Last Assessment & [...] tissue attenuation based on her body habitus. Assessment & Plan (01/07/2025 3:46 PM EST): As above. Orders: ECG 12 lead Basal cell carcinoma (BCC) 03/21/2022 Benign neoplasm of skin of face 03/21/2022 Psoriasis 03/21/2022 PAF (paroxysmal atrial fibri llation) ([facility]/HCC V24, CMS/HCC V28) 10/28/2021 Overview (03/20/2024): Last Assessment & Plan: Patient has history of paroxysmal atrial fibrillation. She also has history of pulmonary embolism in the past. She has been on anticoagulation with Eliquis 2.5 mg twice daily. Her [id number] score is 5 representing a 7.2% risk for thromboembolism. Given her age, weight and renal function her Eliquis dose is not adequate. I will increase her Eliquis to 5 mg twice daily. I explained the importance of appropriate dosing with the patient and she is agreeable to make this change. We will update an echocardiogram. Assessment & Plan (01/07/2025 3:46 PM EST): No perceived recurrence of her atrial fibrillation. Rate is well-controlled on both verapamil and metoprolol; will not make any changes today. She is anticoagulated on Eliquis 5 mg twice daily for cardioembolic prophylaxis. We discussed the risk and benefits of continuing with anticoagulation for cardioembolic prophylaxis and she wishes to continue with current plan. She is on the appropriate dose for age of less than 80 years, weight of greater than 60 kg, and creatinine of less than 1.5. She is aware to seek urgent medical attention for any uncontrolled bleeding, signs or symptoms of GI or other internal bleeding, or for any head injury. In relation to her surgery, we did discuss that anytime anticoagulation is stopped for any period of time if there is a risk of a cardioembolic event, albeit quite low at less than 0.1% for the timeframe in which her Eliquis will be stopped. It should be stopped 48 to no more than 72 hours prior to her procedure, and resumed in the postprocedural period as soon as it is deemed hemodynamically safe to do so by her surgeon. Pulmonary embolism (CMS/HCC V24, CMS/HCC V28) Overview (03/20/2024): Last Assessment & Plan: [...] will also continue on fenofibrate as prescribed. Assessment & Plan (01/07/2025 3:46 PM EST): LDL goal is less than 70 given her history of coronary artery calcification seen on previous CT in addition to carotid stenosis; her most recent lipid panel completed in 07/2024 showed an LDL of 46 which is at goal. Continue atorvastatin 40 mg daily. Hypertension 08/20/2020 Overview (03/20/2024): Last Assessment & Plan: Blood pressure is well-controlled with a reading today of 120/64. She continues on losartan and metoprolol with good effect. No changes to her medications today. Assessment & Plan (01/07/2025 3:46 PM EST): Blood pressure is elevated today on initial check as well as recheck; she will increase her losartan from 50 mg daily to 100 mg daily. Within the next 1 to 1.5 weeks, she will be undergoing surgery and blood pressures will be monitored during this time. Further adjustments can then be made as necessary. We will update a metabolic panel just prior to her procedure scheduled for 01/14/2025. Orders: losartan (COZAAR) 50 mg tablet; Take 2 tablets (100 mg total) by mouth 1 (one) time each day. Take 1 Tablet by mouth daily. Basic metabolic panel; Future PSVT (paroxysmal supraventri cular tachycardia) ([facility] V24) 08/20/2020 Overview (03/20/2024): Last Assessment & Plan: Patient has history of paroxysmal supraventricular tachycardia. She remains on metoprolol for rate control and denies any palpitations. Capillary disease 07/17/2020 Disorder of pigmentation 07/17/2020 Actinic keratosis 12/13/2018 Other viral warts 12/13/2018 Arthritis 11/29/2018 Inflamed seborrheic keratosis 12/07/2017 Encounters Date Type Department Care Team Description 01/07/2025 Telephone [facility] Cardiology [facility] [address] [place] [address] Janes Pinzon MD 01/06/2025 12:50 PM EST Lab Draw Station - [address] [place] [id number] Chronic diarrhea 01/03/2025 3:10 PM EDT Office Visit [facility] [address] [place] [phone] Omayra Shaffer NP Hypertrophic cardiomyopathy (CMS/HCC V24, CMS/HCC V28) (Primary Dx); Coronary artery disease involving yakutat coronary artery of yakutat heart without angina pectoris; Chest pain, unspecified type; Primary hypertension; Mixed hyperlipidemia; PAF (paroxysmal atrial fibrillation) (CMS/HCC V24, CMS/HCC V28); Secondary hypercoagulable state (CMS/HCC V24); Peripheral edema; Current every day smoker; Class 1 obesity; Preoperative cardiovascular examination 01/01/2025 Telephone [facility] [address] [place] [address] Janes Pinzon MD 12/24/2024 1:30 PM EDT Ancillary Procedure [facility] [address] [place] [phone] Current every day smoker; Hypertrophic cardiomyopathy (CMS/HCC V24, CMS/HCC V28); Shortness of breath 11/25/2024 Telephone [facility] [address] [place] [phone] Janes Pinzon MD 11/21/2024 10:50 AM EDT Office Visit [facility] Cardiology [facility] [address] [place] [phone] Janes Pinzon MD Current every day smoker (Primary Dx); Hypertrophic cardiomyopathy (CMS/HCC V24, CMS/HCC V28); Shortness of breath 11/14/2024 1:50 PM EDT Office Visit Gastroenterology - [address] [place] [phone] Wolf Callaway PA Chronic diarrhea (Primary Dx) 11/07/2024 2:30 PM EDT Ancillary Procedure [facility] [address] [place] [phone] PAF (paroxysmal atrial fibrillation) (CMS/HCC V24, CMS/HCC V28); Mixed hyperlipidemia; Pulmonary embolism without acute cor pulmonale, unspecified chronicity, unspecified pulmonary embolism type (CMS/HCC V24, CMS/HCC V28); Coronary artery disease involving yakutat coronary artery of yakutat heart without angina pectoris; Bilateral carotid artery stenosis; Pulmonary emphysema, unspecified emphysema type (CMS/HCC V24, CMS/HCC V28); Current every day smoker from Last 3 Months Immunizations Immunization Administration Dates Next Due Influenza Quadravalent, 0.5m [...] subun it RSVpreF, 0.5mL, Preservative Free (ABRYSVO) 50yo and older or 32 through 36 wks [...] Migraines DX:Migraines Major depressive disorder, r ecurrent ([facility] [place]24) DX:Major depressive disorder , recurrent ([facility]) COPD (chronic obstructive pu lmonary disease) ([facility] [place], [facility] V28) DX:COPD (chronic o bstructive pulmonary disease) ([facility]) Alcohol dependence in sustai ninfa full remission ([facility] [place]24, [facility] V28) DX:Alcohol depend ence in sustained full remission ([facility]) Anxiety DX:Anxiety Back pain DX:Back pain Carpal tunnel syndrome, bilateral DX:Carpal tunnel syndrome, bilateral Depression DX:Depression Emphysema lung ([facility] V24, [facility] V28) DX:Emphysema lung ([facility]) IFG (impaired fasting glucose) D X:IFG (impaired fasting glucose) Tobacco abuse DX:Tobacco abuse Acute respiratory failure wi th hypoxia ([facility] V24, [facility] V28) DX:Acute respiratory failur e with hypoxia ([facility]) Pulmonary embolism ([facility] V24, [facility] V28) DX:Pulmonary embolism ([facility]); COMMENT: Unprovoked submassive Dyspnea DX:Dyspnea RLS (restless [...] Sign Reading Time Taken Comments Blood Pressure 154/66 01/03/2025 3:07 PM EDT Pulse 62 01/03/2025 3:07 PM EDT Temperature - - Respiratory Rate - - Oxygen Saturation 95% 01/03/2025 3:07 PM EDT Inhaled Oxygen Concentration - - Weight 82.6 kg (182 lb) 01/03/2025 3:07 PM EDT Height 158.8 cm (5' 2.5 ) 01/03/2025 3:07 PM EDT Body Mass Index 32.76 01/03/2025 3:07 PM EDT Plan of Treatment Upcoming Encounters Date Type Department Care Team (Late st Contact Info) Description 01/20/2025 1:30 PM EST Office Visit [facility] Cardiology [facility] [address] [facility] [address] [place] [phone] Janes Pinzon MD [address] [place] [address] [address] [place] [address] 05/12/2025 8:40 AM EDT Office Visit [facility] [place] [address] [facility] [address] [place] [phone] Omayra Shaffer NP [address] [place] [address] [address] [place] [address] Health Maintenance Due Date Last Done Comments Breast Cancer Screening 1950 Colorectal Cancer Screening: Colonoscopy 1950 DTaP,Tdap,and Td Vaccines (1 - Tdap) 11/25/1971 Falls Risk Assessment 02/12/2022 Hepatitis C Screening 02/12/2022 Medicare Annual Wellness Visit 02/12/2022 Osteoporosis Screening (Bone Density Screening) 02/12/2022 Social Influencers of Health Screening 02/12/2022 Depression Screening 03/06/2024 COVID-19 Vaccine ( season) 2024 06/21/2024, 12/20/2023, 12/07/2022, Additional history exists Influenza Vaccine (#1) 2024 , 12/22/2021, 12/06/2020, Additional history exists Hypertension/CHF/CAD Annual BMP Blood Test 04/10/2025 04/10/2024 Cholesterol Screening (Lipid Panel) 07/17/2029 07/17/2024, 04/26/2024 RSV Immunization Adult Patients Completed 12/07/2022 Pneumococcal Vaccine: 50+ Years Completed 11/10/2023, 12/05/2017, 08/18/2010 Zoster Vaccines Completed 11/10/2023, 06/01/2023 HIB Vaccines Aged Out No longer eligi [...] Procedure Name Priority Date/Time Associated Diagnosis Comments CALPROTECTIN, STOOL Routine 01/06/2025 1 2:47 PM EST Chronic diarrhea ECG 12-LEAD Routine 01/06/2025 11:31 AM EST Chest pain, unspecified type TRANSTHORACIC ECHOCARDIOGRAM (TTE) LIMITED COLOR FLOW & DOPPLER Routine 12/24/2024 2:08 PM EDT Current every day smoker Hypertrophic cardiomyopathy (CMS/HCC V24, CMS/HCC V28) Shortness of breath CALPROTECTIN, STOOL Routine 11/20/2024 1 2:26 PM EDT Chronic diarrhea TRANSTHORACIC ECHOCARDIOGRAM (TTE) COMPLETE W/ CONTRAST Routine 11/07/2024 3:14 PM EDT PAF (paroxysmal atrial fibrillation) (CMS/HCC V24, CMS/HCC V28) Mixed hyperlipidemia Pulmonary embolism without acute cor pulmonale, unspecified chronicity, unspecified pulmonary embolism type (CMS/HCC V24, CMS/HCC V28) Coronary artery disease involving yakutat coronary artery of yakutat heart without angina pectoris Bilateral carotid artery stenosis Pulmonary emphysema, unspecified emphysema type (CMS/HCC V24, CMS/HCC V28) Current every day smoker LIPID PANEL Routine 07/17/2024 2:15 PM EDT COMPREHENSIVE METABOLIC PANEL Routine 04/10/2024 2:30 PM EST Early satiety Pharyngoesophageal dysphagia Regurgitation of food Chronic diarrhea from Last 3 Months or Most Recently Relevant to Health Maintenance Results * (ABNORMAL) Calprotectin, stool (01/06/2025 12:47 PM EST) Only the most recent of2 resultswithin the time period is included. Calprotectin, Fecal 63.1(H) <50 mcg/g 01/09/2025 12:46 PM EST [facility] Comment: <50 mcg/g Normal 50 - 120 mcg/g Borderline >120 mcg/g Abnormal Borderline results suggest repeat testing in 4 to 6 weeks. Test performed at [facility], [address], [place] [address] Kary Cast MD, PhD - Insights Analyst Stool Rectum structure / Unknown Non-blood Collection / Unknown 01/06/2025 12:47 PM EST 01/06/2025 2:04 PM EST us Wolf [facility] BODY FLUIDS AND STOOLS O RDERABLES Final Result [facility] [address] [place] [address] * ECG 12 lead (01/06/2025 11:31 AM EST) Ventricular Rate ECG 62 BPM GEMUSE Atrial Rate 62 BPM GEMUSE P-R Interval 172 ms GEMUSE QRS Duration 78 ms GEMUSE Q-T Interval 410 ms GEMUSE QTc 416 ms GEMUSE P Wave Marshall 58 degrees GEMUSE R Marshall 0 degrees GEMUSE T Marshall 92 degrees GEMUSE ECG Interpretation Normal sinus rhythm Cannot exclude Septal infarct (cited on or before 15-JUL-2024) Abnormal ECG When compared with ECG of 15-JUL-2024 13:35, No significant change was found Confirmed by [facility]ble NORTH YUFENG ([id number]) on 01/06/2025 4:18:38 PM GEMUSE 01/03/2025 3:13 PM EDT 01/06/2025 4:18 PM EST us Omayra Shaffer NP ECG ORDERABLES Edite d Result - Final Performing Organization Address City/[facility]/ZIP Co de Phone Number GEMUSE * (ABNORMAL) TRANSTHORACIC ECHOCARDIOGRAM (TTE) LIMITED COLOR FLOW & DOPPLER (12/24/2024 2:08 PM EDT) MV Mean Gradient 3 mmHg CV PACS MR VTI 79.8 cm CV PACS MV VTI 48.6 cm CV PACS MR PISA Max Velocity 3.2 m/s CV PACS MR Peak Gradient 41 mmHg CV PACS Mitral Valve Max Velocity 1.6 m/s CV PACS MV Peak Gradient 10 mmHg CV PACS E Wave Deceleration Time 306(A) 119 - 242 ms CV PACS MV Peak A Emmett 1.42 m/s CV PACS MV Peak E Emmett 1.10 m/s CV PACS E/A Ratio 0.8 CV PACS BSA 1.94 m2 CV PACS Anatomical Region Laterality Modality Ultrasound Narrative 01/07/2025 12:41 PM EST This is a limited study showing hyperdynamic LV function. Also systolic anterior movement of the mitral leaflets. An LVOT gradient of about 25 mmHg that increases to 66 with a Valsalva. A midcavity gradient of about 27 mmHg that remains the same with Valsalva. Mild mitral regurgitation. An echo on November 07 was similar. Before the introduction of verapamil on top of metoprolol. Left Ventricle Left ventricle was not assessed. not assessed due to limited study . It appears minimally increased or at the upper limits of normal. Systolic function is hyperdynamic with an ejection fraction over 70%. LV global longitudal strain not assessed. There is systolic anterior movement of the mitral leaflets. There is a midcavity gradient at 20 to 25 mmHg that remains unchanged with Valsalva. But there is an LVOT gradient of 25 mmHg that increases to 66 mmHg with Valsalva. There are no regional LV wall motion abnormalities. Unable to assess diastolic function. Right Ventricle Right ventricle was not assessed. not assessed Left Atrium not assessed due to limited exam but it appears to be normal Right Atrium Right atrium was not assessed. Mitral Valve The leaflets are mildly thickened. There is mild annular calcification. There is mild regurgitation with a centrally directed jet. There is mild stenosis. There is systolic anterior movement of the mitral leaflets. Tricuspid Valve The tricuspid valve was not assessed. Tricuspid valve structure is normal. Unable to assess tricuspid valve regurgitation and stenosis due to poor Doppler exam. Aortic Valve The aortic valve is trileaflet. The leaflets are mildly thickened. there is possible mid cavity obstruction. There is no regurgitation or stenosis. Pulmonic Valve The pulmonic valve was not assessed. Unable to assess pulmonic valve regurgitation and stenosis due to poor Doppler exam. Ascending Aorta The aorta was not assessed. Pericardium Pericardium was not assessed. Study Details Overall the study quality was adequate. us Janes Pinzon MD CV ECHO PROCEDURES Final Result * (ABNORMAL) TRANSTHORACIC ECHOCARDIOGRAM (TTE) COMPLETE W/ CONTRAST (11/07/2024 3:14 PM EDT) Left Atrium Major Marshall 5.9 cm CV PACS LA Area Sys (A4C) 16 cm2 CV PACS RA Area 10.0 cm2 CV PACS RA 2D Volume 17 mL CV PACS AV Mean Gradient 19 mmHg CV PACS Ao VTI 67.7 cm CV PACS AV Peak Emmett 2.7 m/s CV PACS AV Peak Gradient 30 mmHg CV PACS AV Area Continuity Equation 3.3 cm2 CV PACS AV Area Peak Velocity 3.6 cm2 CV PACS Aortic Sinus Valsalva 3.4 cm CV PACS Ascending Aorta 3.1 cm CV PACS IVSD 1.5(A) 0.6 - 0.9 cm CV PACS LVIDD 4.3 3.8 - 5.2 cm CV PACS LVIDS 2.5 2.2 - 3.5 cm CV PACS LVOT Diameter 2.0 cm CV PACS LVOT Mean Emmett 2.2 m/s CV PACS LVOT Mean Grad 22 mmHg CV PACS LVOT Peak VTI 72.0 cm CV PACS LVOT Peak Emmett 3.1 m/s CV PACS LVOT Peak Gradient 39 mmHg CV PACS LVPWD 1.3(A) 0.6 - 0.9 cm CV PACS MV E' Tissue Velocity Lateral 5 cm/s CV PACS MV E' Tissue Velocity Septal 4 cm/s CV PACS LVOT Area 3.1 cm2 CV PACS LVOT Stroke Volume 226 mL CV PACS MV Deceleration [place] 3.1 m/s2 CV PACS E Wave Deceleration Time 317(A) 119 - 242 ms CV PACS MV PHT 92 ms CV PACS MV Peak A Emmett 1.50 m/s CV PACS MV Peak E Emmett 1.00 m/s CV PACS MV Mean Gradient 4 mmHg CV PACS MV VTI 52.1 cm CV PACS Mitral Valve Max Velocity 1.5 m/s CV PACS MV Peak Gradient 9 mmHg CV PACS MV Area PHT 2.4 cm2 CV PACS MV Area Continuity Equation 4.3 cm2 CV PACS RV Diastolic Basal Dimension 3.6 2.5 - 4.1 cm CV PACS RV S' 14 cm/s CV PACS TAPSE 25 mm CV PACS E/E' Ratio Septal 25 CV PACS E/E' Ratio Averaged 23 CV PACS LVOT Stroke Index 123 mL/m2 CV PACS Relative Wall Thickness ratio 0.60(A) 0.22 - 0.42 CV PACS LVOT:AV VTI Index 1.06 CV PACS FS 42 % CV PACS LV Mass 2D 232(A) 66 - 150 g CV PACS Ascending Aorta Index 1.69 cm/m2 CV PACS MV VTI:LVOT VTI ratio 0.7 CV PACS LVOT flow 691 mL/s CV PACS RA 2D Volume Index 9 15 - 27 mL/m2 CV PACS YOLIS Index (VTI) 1.82 cm2/m2 CV PACS YOLIS Index (Pk Emmett) 1.97 cm2/m2 CV PACS LVIDD Index 2.35 cm/m2 CV PACS LVIDS Index 1.37 cm/m2 CV PACS AV Velocity Ratio 1.15 CV PACS E/A Ratio 0.7(A) 0.8 - 2.0 CV PACS E/E' Ratio Lateral 20 CV PACS LV Mass Index 2D 127 44 - 88 g/m2 CV PACS BSA 1.89 m2 CV PACS LA Volume (BP) 48 mL CV PACS LA Volume Index (BP) 26 mL/m2 CV PACS LA Area Sys (A2C) 21 cm2 CV PACS RV Free Wall Peak S' 14 cm/s CV PACS RA Major Marshall 4.7 cm CV PACS RA Major Marshall Index 2.6 2.2 - 2.8 cm/m2 CV PACS AV Area 2D 3.6 cm2 CV PACS YOLIS Index (2D) 1.97 cm2/m2 CV PACS AV Area Index 1.9 CV PACS Est. RA Pressure 3 mmHg CV PACS Anatomical Region Laterality Modality Ultrasound Narrative 11/14/2024 1:48 PM EDT Left ventricle cavity size is normal. Left ventricular systolic function is hyperdynamic with an ejection fraction over 70%. There is an LVOT gradient of 44 mmHg at rest and perhaps as high as 88 mmHg with Valsalva. It is a bit difficult to be certain that Doppler was in the right spot. No regional LV wall motion abnormalities noted. Left ventricle moderate asymmetric hypertrophy involving the base of the septum. Right ventricle cavity is normal. Right ventricular systolic function is normal. There appears to be mild GERMAIN of the mitral valve and there is mild eccentric MR traveling under the aortic leaflet. Normal left and right atrium. When compared to October 11, 2023 the technique of measuring the outflow tract gradient was somewhat different. It seems as though the peak gradient with Valsalva was only 23 mmHg at that time. Otherwise the echo is the same. Left Ventricle Left ventricle cavity size is normal. There is moderate asymmetric hypertrophy. Systolic function is hyperdynamic with an ejection fraction over 70%. There are no regional LV wall motion abnormalities. It was difficult to accurately assess LV pressure gradients but it looks as though there is an LV outflow tract pressure gradient of at least 44 mmHg at rest. With Valsalva it went up to 65 mmHg and possibly even as high as 88 mmHg. Indeterminate diastolic function. Right Ventricle Right ventricle cavity appears normal. Systolic function is normal. Left Atrium Left atrium cavity size is normal. Right Atrium Right atrium cavity is normal. IVC/SVC Inferior vena cava structure is normal. RA pressures is estimated to be 3 mmHg (IVC diameter <21 mm and decreases >50% during inspiration). Mitral Valve The leaflets are mildly thickened. There is annular calcification. There is mild regurgitation with an eccentrically directed jet. Travels anteriorly. There is no evidence of mitral valve stenosis. There is systolic anterior motion of the anterior leaflet with late peaking gradient. Tricuspid Valve The leaflets exhibit normal excursion. There is trace regurgitation. There is no evidence of tricuspid valve stenosis. Cannot assess RVSP. Aortic Valve The aortic valve is trileaflet. There is trace regurgitation. There is no evidence of aortic valve stenosis. Pulmonic Valve Pulmonic valve structure is normal. There is trace pulmonic valve regurgitation. There is no evidence of pulmonic valve stenosis. Ascending Aorta The aorta appears normal in size. Pericardium Pericardium appears normal. There is no pericardial effusion. Study Details Overall the study quality was technically difficult. Additional technique includes myocardial strain. Definity contrast was given to enhance imaging. Study was difficult due to: poor endocardial visualization. us Janes Pinzon MD CV ECHO PROCEDURES Final Result * Lipid panel (07/17/2024 2:15 PM EDT) Cholesterol Total 113 100 - 199 mg/dL [facility] Triglycerides 132 0 - 149 mg/dL [facility] HDL Cholesterol 44 >39 mg/dL [facility] VLDL Cholesterol Calculated 23 5 - 40 mg/dL [facility] LDL Chol Calc (NIH) 46 0 - 99 mg/dL [facility] 1 07/17/2024 2:15 PM EDT 07/17/2024 Narrative [facility] - 07/18/2024 9:07 AM EDT Performed at: 01 - [facility] [address] [id number] [employer] Contact Printer: Maureen Saleh MD, Phone: [phone] us Janes Pinzon MD LAB BLOOD ORDERABLES Final Resu lt [facility] 1 * (ABNORMAL) Comprehensive metabolic panel (04/10/2024 2:30 PM EST) Sodium 141 133 - 145 mmol/L LAB CHEMISTRY METHOD 04/10/2024 4:21 PM [facility] Potassium 4.1 3.5 - 5.5 mmol/L LAB CHEMISTRY METHOD 04/10/2024 4:21 PM [facility] Chloride 107 96 - 110 mmol/L LAB CHEMISTRY METHOD 04/10/2024 4:21 PM [facility] CO2 30 21 - 32 mmol/L LAB CHEMISTRY METHOD 04/10/2024 4:21 PM [facility] Anion Gap 4 3 - 11 LAB CHEMISTRY METHOD 04/10/2024 4:21 PM [facility] Glucose 144(H) 70 - 100 mg/dL LAB CHEMISTRY METHOD 04/10/2024 4:21 PM [facility] BUN 13 5 - 25 mg/dL LAB CHEMISTRY METHOD 04/10/2024 4:21 PM [facility] Creatinine 1.02 0.50 - 1.10 mg/dL LAB CHEMISTRY METHOD 04/10/2024 4:21 PM [facility] eGFR 59(L) >=60 mL/min/1. 73m2 LAB CHEMISTRY METHOD 04/10/2024 4:21 PM [facility] Comment:Calculation based on the Chronic Kidney Disease Epidemiology Collaboration (CKD-EPI) equation refit without adjustment for race. BUN/Creatinine Ratio 12.7 LAB CHEMISTRY METHOD 04/10/2024 4:21 PM [facility] Calcium 9.4 8.5 - 10.5 mg/dL LAB CHEMISTRY METHOD 04/10/2024 4:21 PM [facility] AST (SGOT) 15 10 - 42 unit/L LAB CHEMISTRY METHOD 04/10/2024 4:21 PM [facility] ALT (SGPT) 30 10 - 60 unit/L LAB CHEMISTRY METHOD 04/10/2024 4:21 PM [facility] Alkaline Phosphatase 122(H) 42 - 121 unit/L LAB CHEMISTRY METHOD 04/10/2024 4:21 PM [facility] Total Protein 6.2 6.0 - 8.0 g/dL LAB CHEMISTRY METHOD 04/10/2024 4:21 PM [facility] Albumin 3.5 3.2 - 5.0 g/dL LAB CHEMISTRY METHOD 04/10/2024 4:21 PM [facility] Total Bilirubin 0.3 0.0 - 1.4 mg/dL LAB CHEMISTRY METHOD 04/10/2024 4:21 PM [facility] Blood Venous blood specimen / Unknown Venipuncture / Unknown 04/10/2024 2:30 PM EST 04/10/2024 3:17 PM EST us Wolf MOLINA LAB BLOOD ORDERABLES Final R esult [facility] [address] [place] [address], from Last 3 Months or Most Recently Relevant to Health Maintenance Insurance MEDICARE [place]ICAID - [place] Care Teams Sourcing Intern Relationship Specialty Start Date End Date Anupama Dumont MD [address] [place] [address] PCP - General Internal Medicine 03/19/24
== END 2025-01-17 13:44 | disposition home or self-care (01) ==
LOC: HO.HNS 12:58
PROVIDERS: PCP Internal Medicine; Visit Provider Neurological Surgery
DX: M54.50 Low back pain, unspecified (principal); M41.56 Other secondary scoliosis, lumbar region; R06.02 Shortness of breath
CPT/HCPCS: 99215

== ENCOUNTER → 2025-01-17 12:57 | Outpatient (BNVA) | payer MEDICARE, MEDICAID, SELFPAY | PROVIDERS: PCP Internal Medicine; Visit Provider Neurological Surgery | DX: M54.50 Low back pain, unspecified (principal); M41.56 Other secondary scoliosis, lumbar region | CPT/HCPCS: 99212 ==